=== PATIENT | male | born 1975 | race Two or more races ===

== ENCOUNTER 2019-05-12 18:46 | Emergency (ER) | payer SELFPAY ==
[~2019-05-12] VITALS: Ht 177.8 cm; Wt 72.6 kg
[2019-05-13 01:21] VITALS: BP 137/82
== END 2019-05-13 01:38 | disposition still patient (30) ==
LOC: EDBD 18:46 → ER 18:49
DX: S09.90XA Unspecified injury of head, initial encounter (principal); R51 Headache; Y04.0XXA Assault by unarmed brawl or fight, initial encounter; Y93.89 Activity, other specified; Y92.89 Other specified places as the place of occurrence of the external cause; Y99.8 Other external cause status
CPT/HCPCS: 70450; 72125

== ENCOUNTER 2021-06-09 11:20 | Inpatient (IN) | payer MEDICAID ==
[~2021-06-09] VITALS: Ht 182.9 cm; Wt 73.0 kg
[2021-06-09] MEDS ORDERED: ASCORBIC ACID 500 MG TAB PO ONE (11:45)
[2021-06-09] MEDS ORDERED: methylPREDNISolone SOD SUCC 125 MG/2 ML VL IV ONE (11:45)
[2021-06-09] MEDS ORDERED: CHOLECALCIFEROL (VITD3) 2,000 UNIT CAP/TAB PO ONE (11:45)
[2021-06-09] MEDS ORDERED: ZINC SULFATE 220mg CAP or TAB PO ONE (11:45)
[2021-06-09] MEDS ORDERED: AZITHROMYCIN 500MG/ 250ML 250 ML IV ONE (11:45)
[2021-06-09] MEDS ORDERED: REMDESIVIR PER PHARMACY 0 ML IV SCH ×2 (12:00→18:15)
[2021-06-09 13:14] LABS: Basophils # (auto) 0 10 ^3/uL (0-0.2); Basophils % (auto) 0.1 % (0.0-2.0); Eosinophils # (auto) 0 10 ^3/uL (0-0.8); Hematocrit 44.3 % (41.0-53.0); Hemoglobin 15.5 g/dL (13.5-17.5); Lymphocytes # (auto) 0.5 10 ^3/uL (0.4-5.4); Lymphocytes % (auto) 7.2 % (10.0-50.0); Mean Corpuscular Hemoglobin 32.8 pg (28.0-32.0); Mean Corpuscular Volume 93.7 fL (80.0-100.0); Monocytes # (auto) 0.4 10 ^3/uL (0-1.3); Monocytes % (auto) 5.4 % (0.0-12.0); Neutrophils # (auto) 6.2 10 ^3/uL (1.6-8.6); Neutrophils % (auto) 87.3 % (37.0-80.0); Nucleated Red Blood Cells % 0.2 %; Red Blood Cells 4.72 10^6/uL (4.5-5.90); Red Cell Distribution Width 12.3 % (11.8-14.3); White Blood Cell 7.1 10^3/uL (4.4-10.8)
[2021-06-09 13:31] LABS: Albumin 2.6 g/dL (3.4-5.0); Calcium 8.2 mg/dL (8.5-10.1); Potassium 4.1 mmol/L (3.5-5.1)
[2021-06-09 13:40] LABS: BUN/Creatinine Ratio 17.9; Bilirubin, Total 0.6 mg/dL (0.2-1.0); CRP High Sensitivity 11.3 mg/dL (< 0.3); Total Protein 7.8 g/dL (6.4-8.2)
[2021-06-09] MEDS ORDERED: REMDESIVIR 200 MG in NS 210ml LOADING DOSE ADULT IV ONE (16:00)
[2021-06-09] MEDS ORDERED: MORPHINE SULFATE INJECTION 2 MG/ML SYRG IV PRN (18:15)
[2021-06-09] MEDS ORDERED: MORPHINE SULFATE 4 MG/ML SYR/VIAL IV PRN (18:15)
[2021-06-09] MEDS ORDERED: LABETALOL HCL 5 MG/ML 4ML SYRINGE IV PRN (18:15)
[2021-06-09] MEDS ORDERED: NITROGLYCERIN 0.4 MG SL TAB SL PRN (18:15)
[2021-06-09] MEDS ORDERED: SODIUM CHLORIDE 0.9% 2,000 ML IV ONE (18:15)
[2021-06-09] MEDS ORDERED: ONDANSETRON HCL 4 MG/2 ML VIAL IV PRN (18:15)
[2021-06-09] MEDS: ALBUTEROL SULF HFA 90MCG INH 200DOSE IN PRN (19:34)
[2021-06-09] MEDS: BUDESONIDE (INHALATION) 180 MCG IH IN SCH (19:34)
[2021-06-09 21:05] VITALS: BP 114/68
[2021-06-09 21:11] VITALS: BP 114/68
[2021-06-09] MEDS: ENOXAPARIN SOD 40 MG/0.4 ML SYRINGE SC SCH (22:19)
[2021-06-10] VITALS (8 sets, daily range): BP systolic 121–138; BP diastolic 70–80
[2021-06-10] MEDS ORDERED: NORPTMEDS CO (00:55)
[2021-06-10] MEDS: ALBUTEROL SULF HFA 90MCG INH 200DOSE IN PRN ×2 (05:56→23:13)
[2021-06-10] MEDS: BUDESONIDE (INHALATION) 180 MCG IH IN SCH ×2 (05:57→21:53)
[2021-06-10 06:56] LABS: Basophils # (auto) 0 10 ^3/uL (0-0.2); Eosinophils # (auto) 0 10 ^3/uL (0-0.8); Hematocrit 41.2 % (41.0-53.0); Hemoglobin 14.6 g/dL (13.5-17.5); Lymphocytes # (auto) 0.5 10 ^3/uL (0.4-5.4); Lymphocytes % (auto) 7.3 % (10.0-50.0); Mean Corpuscular Hemoglobin 33.2 pg (28.0-32.0); Mean Corpuscular Hgb Conc. 35.5 g/dL (32.0-36.0); Mean Corpuscular Volume 93.6 fL (80.0-100.0); Monocytes # (auto) 0.4 10 ^3/uL (0-1.3); Monocytes % (auto) 6.6 % (0.0-12.0); Neutrophils # (auto) 5.8 10 ^3/uL (1.6-8.6); Neutrophils % (auto) 86.1 % (37.0-80.0); Nucleated Red Blood Cells % 0.4 %; Red Cell Distribution Width 12.7 % (11.8-14.3); White Blood Cell 6.7 10^3/uL (4.4-10.8)
[2021-06-10 07:00] LABS: Urine Bacteria NONE SEEN /hpf (None Seen); Urine Blood Negative /uL (Negative); Urine Specific Gravity 1.027 (1.001-1.035); Urine WBC 1 /hpf (0 - 3)
[2021-06-10 07:16] LABS: Potassium 4.3 mmol/L (3.5-5.1)
[2021-06-10 07:24] LABS: Albumin 2.3 g/dL (3.4-5.0); Bilirubin, Total 0.6 mg/dL (0.2-1.0); Calcium 7.7 mg/dL (8.5-10.1); Total Protein 6.3 g/dL (6.4-8.2)
[2021-06-10 07:33] LABS: Thyroid Stimulating Hormone 0.81 uIU/mL (0.358-3.74)
[2021-06-10] MEDS: cefTRIAXone 1GM/50ML D5W 50 ML IV SCH (08:55)
[2021-06-10] MEDS: ZINC SULFATE 220mg CAP or TAB PO SCH (08:56)
[2021-06-10] MEDS: PANTOPRAZOLE 40 MG TAB PO SCH (08:56)
[2021-06-10] MEDS: ASCORBIC ACID 1,000 MG TAB PO SCH (08:57)
[2021-06-10] MEDS: ENOXAPARIN SOD 40 MG/0.4 ML SYRINGE SC SCH ×2 (08:57→22:31)
[2021-06-10] MEDS ORDERED: CHOLECALCIFEROL (VITD3) 2,000 UNIT CAP/TAB PO SCH (10:00)
[2021-06-10] MEDS ORDERED: DexAMETHasone SOD PHOS 10MG/1ML VIAL INJ IV SCH (10:00)
[2021-06-10] MEDS: AZITHROMYCIN 500MG/ 250ML 250 ML IV SCH (10:04)
[2021-06-10] MEDS ORDERED: POTASSIUM CHL 20 Meq TABLET PO ONE (10:30)
[2021-06-10] MEDS ORDERED: FUROSEMIDE 20 MG/2 ML VIAL IV ONE (10:30)
[2021-06-10] MEDS: ERGOCALCIFEROL 50,000 UNIT(1.25MG) CAP PO SCH (12:53)
[2021-06-10] MEDS: REMDESIVIR 100mg 100 MG in SODIUM CHL 0.9% 230 ML IV SCH (12:56)
[2021-06-10] MEDS: DexAMETHasone SOD PHOS 4 MG/1ML SDV INJ IV SCH (22:30)
[2021-06-11 05:00] VITALS: BP_SYST 113; BP_SYST 119; BP_DIAS 70; BP_DIAS 76
[2021-06-11] MEDS: BUDESONIDE (INHALATION) 180 MCG IH IN SCH ×2 (06:12→19:00)
[2021-06-11] MEDS: ALBUTEROL SULF HFA 90MCG INH 200DOSE IN PRN ×2 (06:12→19:51)
[2021-06-11 06:23] LABS: Potassium 4.5 mmol/L (3.5-5.1)
[2021-06-11 06:37] LABS: Albumin 2.6 g/dL (3.4-5.0); Bilirubin, Total 0.8 mg/dL (0.2-1.0); Calcium 7.9 mg/dL (8.5-10.1); Total Protein 6.4 g/dL (6.4-8.2)
[2021-06-11 07:35] VITALS: BP 131/72
[2021-06-11 09:00] VITALS: BP 131/72
[2021-06-11] MEDS: cefTRIAXone 1GM/50ML D5W 50 ML IV SCH (09:46)
[2021-06-11] MEDS: ASCORBIC ACID 1,000 MG TAB PO SCH (09:46)
[2021-06-11] MEDS: PANTOPRAZOLE 40 MG TAB PO SCH (09:46)
[2021-06-11] MEDS: FUROSEMIDE 20 MG/2 ML VIAL IV SCH (09:47)
[2021-06-11] MEDS: ENOXAPARIN SOD 40 MG/0.4 ML SYRINGE SC SCH ×2 (09:47→21:38)
[2021-06-11] MEDS: POTASSIUM CHL 20 Meq TABLET PO SCH (09:47)
[2021-06-11] MEDS: DexAMETHasone SOD PHOS 4 MG/1ML SDV INJ IV SCH ×2 (09:48→21:38)
[2021-06-11] MEDS: ZINC SULFATE 220mg CAP or TAB PO SCH (09:48)
[2021-06-11] MEDS: AZITHROMYCIN 500MG/ 250ML 250 ML IV SCH (11:07)
[2021-06-11] MEDS: DOCUSATE CALCIUM 240 MG CAP PO PRN ×2 (12:12→21:36)
[2021-06-11 12:32] VITALS: BP 118/67
[2021-06-11] MEDS: REMDESIVIR 100mg 100 MG in SODIUM CHL 0.9% 230 ML IV SCH (15:24)
[2021-06-11 16:32] VITALS: BP 131/75
[2021-06-11 22:14] VITALS: BP 126/82
[2021-06-12 05:32] VITALS: BP 123/84
[2021-06-12] MEDS: ALBUTEROL SULF HFA 90MCG INH 200DOSE IN PRN ×2 (05:59→18:19)
[2021-06-12] MEDS: BUDESONIDE (INHALATION) 180 MCG IH IN SCH ×2 (05:59→18:12)
[2021-06-12 06:42] LABS: Albumin 2.7 g/dL (3.4-5.0); Calcium 8.1 mg/dL (8.5-10.1); Potassium 4.9 mmol/L (3.5-5.1)
[2021-06-12 06:47] LABS: Total Protein 6.5 g/dL (6.4-8.2)
[2021-06-12 07:30] VITALS: BP 126/79
[2021-06-12 09:15] VITALS: BP 126/79
[2021-06-12] MEDS: cefTRIAXone 1GM/50ML D5W 50 ML IV SCH (11:07)
[2021-06-12] MEDS: DexAMETHasone SOD PHOS 4 MG/1ML SDV INJ IV SCH ×2 (11:07→20:41)
[2021-06-12] MEDS: ASCORBIC ACID 1,000 MG TAB PO SCH (11:08)
[2021-06-12] MEDS: POTASSIUM CHL 20 Meq TABLET PO SCH (11:08)
[2021-06-12] MEDS: PANTOPRAZOLE 40 MG TAB PO SCH (11:08)
[2021-06-12] MEDS: ZINC SULFATE 220mg CAP or TAB PO SCH (11:09)
[2021-06-12] MEDS: ENOXAPARIN SOD 40 MG/0.4 ML SYRINGE SC SCH ×2 (11:09→20:42)
[2021-06-12] MEDS: FUROSEMIDE 20 MG/2 ML VIAL IV SCH (11:20)
[2021-06-12] MEDS: AZITHROMYCIN 500MG/ 250ML 250 ML IV SCH (12:13)
[2021-06-12 13:00] VITALS: BP 116/71
[2021-06-12] MEDS: REMDESIVIR 100mg 100 MG in SODIUM CHL 0.9% 230 ML IV SCH (15:52)
[2021-06-12 17:00] VITALS: BP 124/79
[2021-06-12 22:00] VITALS: BP 110/64
[2021-06-13] VITALS (12 sets, daily range): BP systolic 100–126; BP diastolic 61–82
[2021-06-13] MEDS: ACETAMINOPHEN 500 MG TAB PO PRN ×2 (05:21→23:21)
[2021-06-13] MEDS: ALBUTEROL SULF HFA 90MCG INH 200DOSE IN PRN ×2 (05:47→18:08)
[2021-06-13] MEDS: BUDESONIDE (INHALATION) 180 MCG IH IN SCH ×2 (05:47→21:40)
[2021-06-13 06:50] LABS: Potassium 4.8 mmol/L (3.5-5.1)
[2021-06-13 06:55] LABS: Albumin 2.7 g/dL (3.4-5.0); Calcium 8.3 mg/dL (8.5-10.1)
[2021-06-13 06:58] LABS: Total Protein 6.5 g/dL (6.4-8.2)
[2021-06-13] MEDS: cefTRIAXone 1GM/50ML D5W 50 ML IV SCH (09:30)
[2021-06-13] MEDS: DexAMETHasone SOD PHOS 4 MG/1ML SDV INJ IV SCH ×2 (09:31→21:02)
[2021-06-13] MEDS: FUROSEMIDE 20 MG/2 ML VIAL IV SCH (09:32)
[2021-06-13] MEDS: POTASSIUM CHL 20 Meq TABLET PO SCH (09:33)
[2021-06-13] MEDS: PANTOPRAZOLE 40 MG TAB PO SCH (09:34)
[2021-06-13] MEDS: ASCORBIC ACID 1,000 MG TAB PO SCH (09:35)
[2021-06-13] MEDS: ENOXAPARIN SOD 40 MG/0.4 ML SYRINGE SC SCH ×2 (09:35→21:02)
[2021-06-13] MEDS: ZINC SULFATE 220mg CAP or TAB PO SCH (09:36)
[2021-06-13] MEDS: DOCUSATE CALCIUM 240 MG CAP PO PRN (09:49)
[2021-06-13] MEDS: AZITHROMYCIN 500MG/ 250ML 250 ML IV SCH (11:05)
[2021-06-13] MEDS: REMDESIVIR 100mg 100 MG in SODIUM CHL 0.9% 230 ML IV SCH (14:39)
[2021-06-13] MEDS ORDERED: TEMAZEPAM 15 MG CAP PO ONE (23:15)
[2021-06-14] VITALS (10 sets, daily range): BP systolic 105–133; BP diastolic 65–85
[2021-06-14 06:42] LABS: Basophils # (auto) 0 10 ^3/uL (0-0.2); Eosinophils # (auto) 0 10 ^3/uL (0-0.8); Eosinophils % (auto) 0.2 % (0.0-7.0); Monocytes # (auto) 0.4 10 ^3/uL (0-1.3); Red Cell Distribution Width 12.5 % (11.8-14.3)
[2021-06-14 06:47] LABS: Basophils % (auto) 0.2 % (0.0-2.0); Hemoglobin 15.9 g/dL (13.5-17.5); Lymphocytes # (auto) 0.5 10 ^3/uL (0.4-5.4); Lymphocytes % (auto) 4.1 % (10.0-50.0); Mean Corpuscular Hemoglobin 32.4 pg (28.0-32.0); Mean Corpuscular Hgb Conc. 34.6 g/dL (32.0-36.0); Mean Corpuscular Volume 93.5 fL (80.0-100.0); Neutrophils # (auto) 11.3 10 ^3/uL (1.6-8.6); Neutrophils % (auto) 92.5 % (37.0-80.0); Nucleated Red Blood Cells % 0.1 %; Red Blood Cells 4.92 10^6/uL (4.5-5.90); White Blood Cell 12.2 10^3/uL (4.4-10.8)
[2021-06-14] MEDS: cefTRIAXone 1GM/50ML D5W 50 ML IV SCH (07:08)
[2021-06-14 08:02] LABS: Albumin 2.8 g/dL (3.4-5.0); BUN/Creatinine Ratio 37.1; Calcium 8.4 mg/dL (8.5-10.1); Total Protein 6.6 g/dL (6.4-8.2)
[2021-06-14] MEDS: FUROSEMIDE 20 MG/2 ML VIAL IV SCH (08:37)
[2021-06-14] MEDS: AZITHROMYCIN 500MG/ 250ML 250 ML IV SCH (08:37)
[2021-06-14] MEDS: DexAMETHasone SOD PHOS 4 MG/1ML SDV INJ IV SCH ×2 (08:37→21:57)
[2021-06-14] MEDS: ZINC SULFATE 220mg CAP or TAB PO SCH (08:38)
[2021-06-14] MEDS: POTASSIUM CHL 20 Meq TABLET PO SCH (08:38)
[2021-06-14] MEDS: BUDESONIDE (INHALATION) 180 MCG IH IN SCH ×2 (08:39→19:00)
[2021-06-14] MEDS: PANTOPRAZOLE 40 MG TAB PO SCH (08:39)
[2021-06-14] MEDS: ALBUTEROL SULF HFA 90MCG INH 200DOSE IN PRN ×2 (08:39→19:00)
[2021-06-14] MEDS: ASCORBIC ACID 1,000 MG TAB PO SCH (08:39)
[2021-06-14] MEDS: ENOXAPARIN SOD 40 MG/0.4 ML SYRINGE SC SCH ×2 (08:40→21:57)
[2021-06-14] MEDS ORDERED: SALINE 0.65 % NASAL SPRAY 45ML BOTTLE EACHNOSTRI ONE (10:45)
[2021-06-14] MEDS: SALINE 0.65 % NASAL SPRAY 45ML BOTTLE EACHNOSTRI SCH ×3 (11:30→21:57)
[2021-06-14] MEDS: Ensure HIGH Protein Chocolate 8oz Bottle PO SCH ×2 (12:00→18:56)
[2021-06-14] MEDS: DOCUSATE CALCIUM 240 MG CAP PO PRN (22:19)
[2021-06-14] MEDS: LORazepam 2MG/ML-1ML VIAL IV PRN (22:19)
[2021-06-15] VITALS (8 sets, daily range): BP systolic 96–133; BP diastolic 61–85
[2021-06-15] MEDS: SALINE 0.65 % NASAL SPRAY 45ML BOTTLE EACHNOSTRI SCH ×4 (06:00→21:35)
[2021-06-15] MEDS: Ensure HIGH Protein Chocolate 8oz Bottle PO SCH ×3 (08:00→18:25)
[2021-06-15] MEDS: DexAMETHasone SOD PHOS 4 MG/1ML SDV INJ IV SCH ×2 (10:01→21:35)
[2021-06-15] MEDS: cefTRIAXone 1GM/50ML D5W 50 ML IV SCH (10:01)
[2021-06-15] MEDS: PANTOPRAZOLE 40 MG TAB PO SCH (10:04)
[2021-06-15] MEDS: FUROSEMIDE 20 MG/2 ML VIAL IV SCH (10:04)
[2021-06-15] MEDS: POTASSIUM CHL 20 Meq TABLET PO SCH (10:04)
[2021-06-15] MEDS: ZINC SULFATE 220mg CAP or TAB PO SCH (10:04)
[2021-06-15] MEDS: ASCORBIC ACID 1,000 MG TAB PO SCH (10:05)
[2021-06-15] MEDS: ENOXAPARIN SOD 40 MG/0.4 ML SYRINGE SC SCH ×2 (10:05→21:36)
[2021-06-15] MEDS ORDERED: TOCILIZUMAB 400 MG in SODIUM CHL 0.9% 80 ML IV ONE (11:30)
[2021-06-15] MEDS ORDERED: SODIUM CHL 0.9% IV ONE (11:30)
[2021-06-15] MEDS ORDERED: TOCILIZUMAB IV ONE (11:30)
[2021-06-15] MEDS: ALBUTEROL SULF HFA 90MCG INH 200DOSE IN PRN ×2 (15:25→21:00)
[2021-06-15] MEDS: BUDESONIDE (INHALATION) 180 MCG IH IN SCH ×2 (15:25→19:36)
[2021-06-15] MEDS: DOCUSATE CALCIUM 240 MG CAP PO PRN (21:37)
[2021-06-16] VITALS (7 sets, daily range): BP systolic 116–134; BP diastolic 74–89
[2021-06-16] MEDS: LORazepam 2MG/ML-1ML VIAL IV PRN (01:16)
[2021-06-16] MEDS: SALINE 0.65 % NASAL SPRAY 45ML BOTTLE EACHNOSTRI SCH ×4 (06:40→22:07)
[2021-06-16 07:09] LABS: White Blood Cell 12.1 10^3/uL (4.4-10.8)
[2021-06-16 07:11] LABS: Hematocrit 45.3 % (41.0-53.0); Mean Corpuscular Hemoglobin 33.2 pg (28.0-32.0); Mean Corpuscular Hgb Conc. 35.3 g/dL (32.0-36.0); Mean Corpuscular Volume 94.1 fL (80.0-100.0); Red Blood Cells 4.82 10^6/uL (4.5-5.90); Red Cell Distribution Width 12.8 % (11.8-14.3)
[2021-06-16 07:19] LABS: BUN/Creatinine Ratio 44.2; Calcium 8.5 mg/dL (8.5-10.1); Potassium 5.2 mmol/L (3.5-5.1)
[2021-06-16 07:27] LABS: Band Neutrophils % (manual) 0; Basophils % (manual) 0 (0.0-2.0); Blast Cells 0; Eosinophils % (manual) 0 (0-7); Metamyelocytes % 0; Myelocytes % 0; Promyelocytes % 0; Reactive Lymphocytes 0
[2021-06-16] MEDS: ALBUTEROL SULF HFA 90MCG INH 200DOSE IN PRN ×2 (07:34→19:10)
[2021-06-16] MEDS: BUDESONIDE (INHALATION) 180 MCG IH IN SCH ×2 (07:34→18:46)
[2021-06-16] MEDS: Ensure HIGH Protein Chocolate 8oz Bottle PO SCH ×3 (07:37→17:47)
[2021-06-16 08:44] LABS: Lymphocytes % (manual) 2 (10.0-50.0); Monocytes % (manual) 2 (0-12)
[2021-06-16] MEDS: cefTRIAXone 1GM/50ML D5W 50 ML IV SCH (08:53)
[2021-06-16] MEDS: PANTOPRAZOLE 40 MG TAB PO SCH (09:11)
[2021-06-16] MEDS: DexAMETHasone SOD PHOS 4 MG/1ML SDV INJ IV SCH ×2 (09:11→22:06)
[2021-06-16] MEDS: ZINC SULFATE 220mg CAP or TAB PO SCH (09:11)
[2021-06-16] MEDS: ASCORBIC ACID 1,000 MG TAB PO SCH (09:12)
[2021-06-16] MEDS: POTASSIUM CHL 20 Meq TABLET PO SCH (09:12)
[2021-06-16] MEDS: ENOXAPARIN SOD 40 MG/0.4 ML SYRINGE SC SCH ×2 (09:12→22:07)
[2021-06-16] MEDS: FUROSEMIDE 20 MG/2 ML VIAL IV SCH (09:12)
[2021-06-16] MEDS ORDERED: SODIUM ZIRCONIUM CYCL 10 GM PAK PO ONE (12:15)
[2021-06-16] MEDS ORDERED: TOCILIZUMAB 400 MG in SODIUM CHL 0.9% 80 ML IV SCH (22:00)
[2021-06-17 05:00] VITALS: BP 101/61
[2021-06-17 05:56] LABS: Basophils # (auto) 0 10 ^3/uL (0-0.2); Eosinophils # (auto) 0.1 10 ^3/uL (0-0.8); Mean Corpuscular Volume 93.2 fL (80.0-100.0); Monocytes # (auto) 0.3 10 ^3/uL (0-1.3); Monocytes % (auto) 2.5 % (0.0-12.0)
[2021-06-17 05:57] LABS: Basophils % (auto) 0.4 % (0.0-2.0); Eosinophils % (auto) 0.7 % (0.0-7.0); Hematocrit 46.3 % (41.0-53.0); Hemoglobin 15.8 g/dL (13.5-17.5); Lymphocytes # (auto) 0.3 10 ^3/uL (0.4-5.4); Mean Corpuscular Hemoglobin 31.7 pg (28.0-32.0); Neutrophils # (auto) 11.7 10 ^3/uL (1.6-8.6); Neutrophils % (auto) 94.4 % (37.0-80.0); Nucleated Red Blood Cells % 0.1 %; Red Blood Cells 4.97 10^6/uL (4.5-5.90); Red Cell Distribution Width 12.7 % (11.8-14.3); White Blood Cell 12.4 10^3/uL (4.4-10.8)
[2021-06-17] MEDS: SALINE 0.65 % NASAL SPRAY 45ML BOTTLE EACHNOSTRI SCH ×4 (06:08→22:07)
[2021-06-17 06:23] LABS: Albumin 2.5 g/dL (3.4-5.0); Calcium 8.5 mg/dL (8.5-10.1); Potassium 5.1 mmol/L (3.5-5.1)
[2021-06-17 06:28] LABS: BUN/Creatinine Ratio 43.4; Bilirubin, Total 0.7 mg/dL (0.2-1.0); Total Protein 6.2 g/dL (6.4-8.2)
[2021-06-17] MEDS: Ensure HIGH Protein Chocolate 8oz Bottle PO SCH ×3 (08:51→17:46)
[2021-06-17 09:09] VITALS: BP 108/69
[2021-06-17] MEDS: cefTRIAXone 1GM/50ML D5W 50 ML IV SCH (09:22)
[2021-06-17] MEDS: ASCORBIC ACID 1,000 MG TAB PO SCH (09:23)
[2021-06-17] MEDS: FUROSEMIDE 20 MG/2 ML VIAL IV SCH (09:23)
[2021-06-17] MEDS: ENOXAPARIN SOD 40 MG/0.4 ML SYRINGE SC SCH ×2 (09:23→22:07)
[2021-06-17] MEDS: DexAMETHasone SOD PHOS 4 MG/1ML SDV INJ IV SCH ×2 (09:24→22:07)
[2021-06-17] MEDS: ZINC SULFATE 220mg CAP or TAB PO SCH (09:24)
[2021-06-17] MEDS: PANTOPRAZOLE 40 MG TAB PO SCH (09:24)
[2021-06-17] MEDS: ALBUTEROL SULF HFA 90MCG INH 200DOSE IN PRN ×2 (10:59→20:06)
[2021-06-17] MEDS: BUDESONIDE (INHALATION) 180 MCG IH IN SCH ×2 (11:00→18:50)
[2021-06-17] MEDS ORDERED: MORPHINE SULFATE 4 MG/ML SYR/VIAL IV PRN (12:00)
[2021-06-17] MEDS: ERGOCALCIFEROL 50,000 UNIT(1.25MG) CAP PO SCH (12:32)
[2021-06-17 14:10] VITALS: BP 122/87
[2021-06-17 17:24] VITALS: BP 107/67
[2021-06-17 22:00] VITALS: BP 120/84
[2021-06-18 05:00] VITALS: BP 111/64
[2021-06-18] MEDS: SALINE 0.65 % NASAL SPRAY 45ML BOTTLE EACHNOSTRI SCH ×4 (06:00→22:27)
[2021-06-18 07:12] LABS: Calcium 8.5 mg/dL (8.5-10.1)
[2021-06-18 08:00] VITALS: BP 130/86
[2021-06-18] MEDS: BUDESONIDE (INHALATION) 180 MCG IH IN SCH ×2 (09:35→22:00)
[2021-06-18] MEDS: ASCORBIC ACID 1,000 MG TAB PO SCH (10:00)
[2021-06-18 10:05] VITALS: BP 133/110
[2021-06-18] MEDS: cefTRIAXone 1GM/50ML D5W 50 ML IV SCH (10:41)
[2021-06-18] MEDS: DexAMETHasone SOD PHOS 4 MG/1ML SDV INJ IV SCH ×2 (10:41→22:27)
[2021-06-18] MEDS: FUROSEMIDE 20 MG/2 ML VIAL IV SCH (10:42)
[2021-06-18] MEDS: ZINC SULFATE 220mg CAP or TAB PO SCH (10:42)
[2021-06-18] MEDS: Ensure HIGH Protein Chocolate 8oz Bottle PO SCH ×3 (10:43→19:54)
[2021-06-18] MEDS: ENOXAPARIN SOD 40 MG/0.4 ML SYRINGE SC SCH ×2 (10:43→22:27)
[2021-06-18] MEDS: PANTOPRAZOLE 40 MG TAB PO SCH (10:43)
[2021-06-18 13:32] VITALS: BP 133/110
[2021-06-18 16:56] VITALS: BP 107/70
[2021-06-18 22:00] VITALS: BP 127/88
[2021-06-19 05:00] VITALS: BP 105/74
[2021-06-19] MEDS: SALINE 0.65 % NASAL SPRAY 45ML BOTTLE EACHNOSTRI SCH ×4 (06:21→21:24)
[2021-06-19] MEDS: Ensure HIGH Protein Chocolate 8oz Bottle PO SCH ×3 (08:00→18:00)
[2021-06-19 09:37] VITALS: BP 111/73
[2021-06-19] MEDS: DexAMETHasone SOD PHOS 4 MG/1ML SDV INJ IV SCH ×2 (10:02→21:25)
[2021-06-19] MEDS: ENOXAPARIN SOD 40 MG/0.4 ML SYRINGE SC SCH ×2 (10:02→21:25)
[2021-06-19] MEDS: FUROSEMIDE 20 MG/2 ML VIAL IV SCH (10:06)
[2021-06-19] MEDS: BUDESONIDE (INHALATION) 180 MCG IH IN SCH ×2 (10:17→22:24)
[2021-06-19] MEDS: PANTOPRAZOLE 40 MG TAB PO SCH (10:21)
[2021-06-19] MEDS: cefTRIAXone 1GM/50ML D5W 50 ML IV SCH (11:24)
[2021-06-19] MEDS: LORazepam 2MG/ML-1ML VIAL IV PRN ×2 (11:24→22:00)
[2021-06-19 12:46] VITALS: BP 100/67
[2021-06-19 16:35] VITALS: BP 101/68
[2021-06-19 22:00] VITALS: BP 122/74
[2021-06-19] MEDS: DOCUSATE CALCIUM 240 MG CAP PO PRN (22:01)
[2021-06-20 05:00] VITALS: BP 121/77
[2021-06-20] MEDS: SALINE 0.65 % NASAL SPRAY 45ML BOTTLE EACHNOSTRI SCH ×4 (06:00→21:26)
[2021-06-20] MEDS: ALBUTEROL SULF HFA 90MCG INH 200DOSE IN PRN ×2 (06:17→18:50)
[2021-06-20] MEDS: BUDESONIDE (INHALATION) 180 MCG IH IN SCH ×2 (06:17→18:49)
[2021-06-20 09:00] VITALS: BP 107/71
[2021-06-20] MEDS: Ensure HIGH Protein Chocolate 8oz Bottle PO SCH ×3 (10:21→18:00)
[2021-06-20] MEDS: cefTRIAXone 1GM/50ML D5W 50 ML IV SCH (10:22)
[2021-06-20] MEDS: PANTOPRAZOLE 40 MG TAB PO SCH (10:22)
[2021-06-20] MEDS: DexAMETHasone SOD PHOS 4 MG/1ML SDV INJ IV SCH ×2 (10:22→21:26)
[2021-06-20] MEDS: ENOXAPARIN SOD 40 MG/0.4 ML SYRINGE SC SCH ×2 (10:22→21:27)
[2021-06-20] MEDS: FUROSEMIDE 20 MG/2 ML VIAL IV SCH ×2 (10:24→21:28)
[2021-06-20 13:00] VITALS: BP 107/71
[2021-06-20 17:00] VITALS: BP 129/83
[2021-06-20 21:52] VITALS: BP 107/72
[2021-06-21] MEDS: SALINE 0.65 % NASAL SPRAY 45ML BOTTLE EACHNOSTRI SCH ×4 (04:56→22:26)
[2021-06-21 05:00] VITALS: BP 97/60
[2021-06-21] MEDS: ALBUTEROL SULF HFA 90MCG INH 200DOSE IN PRN ×2 (05:29→19:05)
[2021-06-21] MEDS: BUDESONIDE (INHALATION) 180 MCG IH IN SCH ×2 (05:29→18:06)
[2021-06-21 08:20] LABS: Eosinophils # (auto) 0 10 ^3/uL (0-0.8); Monocytes # (auto) 1.1 10 ^3/uL (0-1.3)
[2021-06-21 08:22] LABS: Basophils # (auto) 0 10 ^3/uL (0-0.2); Basophils % (auto) 0.2 % (0.0-2.0); Eosinophils % (auto) 0.2 % (0.0-7.0); Hematocrit 49.2 % (41.0-53.0); Hemoglobin 17.1 g/dL (13.5-17.5); Lymphocytes % (auto) 6.3 % (10.0-50.0); Mean Corpuscular Hemoglobin 32.3 pg (28.0-32.0); Mean Corpuscular Hgb Conc. 34.7 g/dL (32.0-36.0); Monocytes % (auto) 6.7 % (0.0-12.0); Neutrophils # (auto) 13.7 10 ^3/uL (1.6-8.6); Neutrophils % (auto) 86.6 % (37.0-80.0); Nucleated Red Blood Cells % 0.2 %; Red Blood Cells 5.29 10^6/uL (4.5-5.90); Red Cell Distribution Width 12.7 % (11.8-14.3); White Blood Cell 15.9 10^3/uL (4.4-10.8)
[2021-06-21 08:33] LABS: Potassium 4.4 mmol/L (3.5-5.1)
[2021-06-21 08:39] LABS: BUN/Creatinine Ratio 55.8; Calcium 8.7 mg/dL (8.5-10.1)
[2021-06-21 09:02] VITALS: BP 118/74
[2021-06-21] MEDS: DexAMETHasone SOD PHOS 4 MG/1ML SDV INJ IV SCH ×2 (10:44→22:26)
[2021-06-21] MEDS: cefTRIAXone 1GM/50ML D5W 50 ML IV SCH (10:44)
[2021-06-21] MEDS: Ensure HIGH Protein Chocolate 8oz Bottle PO SCH ×3 (10:44→17:56)
[2021-06-21] MEDS: PANTOPRAZOLE 40 MG TAB PO SCH (10:45)
[2021-06-21] MEDS: ENOXAPARIN SOD 40 MG/0.4 ML SYRINGE SC SCH ×2 (10:45→22:26)
[2021-06-21] MEDS: FUROSEMIDE 20 MG/2 ML VIAL IV SCH ×2 (10:46→22:25)
[2021-06-21] MEDS: LORazepam 2MG/ML-1ML VIAL IV PRN (12:44)
[2021-06-21] MEDS ORDERED: PIPERACILLIN-TAZOB 3.375GM 100 ML IV ONE (12:45)
[2021-06-21 12:55] VITALS: BP 110/63
[2021-06-21 17:00] VITALS: BP 107/72
[2021-06-21] MEDS: PIPERACILLIN-TAZOB 3.375GM 100 ML IV SCH ×2 (17:56→22:27)
[2021-06-21 22:00] VITALS: BP 121/70
[2021-06-22 05:00] VITALS: BP 126/71
[2021-06-22] MEDS: PIPERACILLIN-TAZOB 3.375GM 100 ML IV SCH ×3 (05:45→22:02)
[2021-06-22] MEDS: SALINE 0.65 % NASAL SPRAY 45ML BOTTLE EACHNOSTRI SCH ×4 (05:46→22:15)
[2021-06-22] MEDS: BUDESONIDE (INHALATION) 180 MCG IH IN SCH ×2 (05:50→22:00)
[2021-06-22] MEDS: ALBUTEROL SULF HFA 90MCG INH 200DOSE IN PRN ×2 (05:51→23:53)
[2021-06-22 06:47] LABS: Hemoglobin 17.8 g/dL (13.5-17.5); Mean Corpuscular Hemoglobin 32.1 pg (28.0-32.0)
[2021-06-22 06:49] LABS: Hematocrit 51.7 % (41.0-53.0); Mean Corpuscular Hgb Conc. 34.4 g/dL (32.0-36.0); Mean Corpuscular Volume 93.1 fL (80.0-100.0); Red Blood Cells 5.55 10^6/uL (4.5-5.90); Red Cell Distribution Width 12.7 % (11.8-14.3); White Blood Cell 18.5 10^3/uL (4.4-10.8)
[2021-06-22 07:29] LABS: Band Neutrophils % (manual) 0; Basophils % (manual) 0 (0.0-2.0); Blast Cells 0; Eosinophils % (manual) 0 (0-7); Metamyelocytes % 0; Myelocytes % 0; Promyelocytes % 0; Reactive Lymphocytes 0
[2021-06-22 08:04] LABS: Lymphocytes % (manual) 4 (10.0-50.0); Monocytes % (manual) 3 (0-12)
[2021-06-22] MEDS: Ensure HIGH Protein Chocolate 8oz Bottle PO SCH ×2 (08:27→12:03)
[2021-06-22] MEDS: DexAMETHasone SOD PHOS 4 MG/1ML SDV INJ IV SCH ×2 (08:27→22:15)
[2021-06-22] MEDS: PANTOPRAZOLE 40 MG TAB PO SCH (08:28)
[2021-06-22] MEDS: ENOXAPARIN SOD 40 MG/0.4 ML SYRINGE SC SCH (08:28)
[2021-06-22] MEDS: FUROSEMIDE 20 MG/2 ML VIAL IV SCH (08:34)
[2021-06-22] MEDS: DOCUSATE CALCIUM 240 MG CAP PO PRN (08:35)
[2021-06-22 09:00] VITALS: BP 121/77
[2021-06-22] MEDS: LORazepam 2MG/ML-1ML VIAL IV PRN (11:05)
[2021-06-22 12:30] VITALS: BP 110/72
[2021-06-22] MEDS: Glucerna Carbsteady SHAKE Vanilla 8oz PO SCH (17:54)
[2021-06-22 18:55] VITALS: BP 103/68
[2021-06-22 22:01] VITALS: BP 124/73
[2021-06-22] MEDS: ENOXAPARIN SOD 80 MG/0.8ML SYRINGE SC SCH (22:15)
[2021-06-23 05:00] VITALS: BP 105/55
[2021-06-23] MEDS: SALINE 0.65 % NASAL SPRAY 45ML BOTTLE EACHNOSTRI SCH ×7 (05:49→22:00)
[2021-06-23] MEDS: PIPERACILLIN-TAZOB 3.375GM 100 ML IV SCH ×3 (05:49→21:34)
[2021-06-23] MEDS: ALBUTEROL SULF HFA 90MCG INH 200DOSE IN PRN ×2 (07:26→19:08)
[2021-06-23] MEDS: BUDESONIDE (INHALATION) 180 MCG IH IN SCH ×2 (07:26→19:08)
[2021-06-23 07:57] LABS: Hematocrit 49.4 % (41.0-53.0); Hemoglobin 16.6 g/dL (13.5-17.5); Mean Corpuscular Hemoglobin 31.3 pg (28.0-32.0); Mean Corpuscular Hgb Conc. 33.6 g/dL (32.0-36.0); Mean Corpuscular Volume 93.1 fL (80.0-100.0); Red Blood Cells 5.31 10^6/uL (4.5-5.90); Red Cell Distribution Width 12.5 % (11.8-14.3)
[2021-06-23 08:09] LABS: Calcium 8.6 mg/dL (8.5-10.1); Potassium 4.2 mmol/L (3.5-5.1)
[2021-06-23 08:11] LABS: BUN/Creatinine Ratio 50.9
[2021-06-23 08:14] LABS: Band Neutrophils % (manual) 0; Basophils % (manual) 0 (0.0-2.0); Blast Cells 0; Eosinophils % (manual) 0 (0-7); Metamyelocytes % 0; Myelocytes % 0; Promyelocytes % 0; Reactive Lymphocytes 0
[2021-06-23 08:29] LABS: Lymphocytes % (manual) 3 (10.0-50.0); Monocytes % (manual) 6 (0-12)
[2021-06-23 09:04] VITALS: BP 125/70
[2021-06-23] MEDS: Glucerna Carbsteady SHAKE Vanilla 8oz PO SCH ×3 (09:49→18:12)
[2021-06-23] MEDS: DexAMETHasone SOD PHOS 4 MG/1ML SDV INJ IV SCH ×2 (09:49→21:34)
[2021-06-23] MEDS: ENOXAPARIN SOD 80 MG/0.8ML SYRINGE SC SCH ×2 (09:50→21:34)
[2021-06-23] MEDS: FAMOTIDINE (10MG/ML) 2ML VL IV SCH (10:00)
[2021-06-23 13:00] VITALS: BP 123/75
[2021-06-23] MEDS ORDERED: POTASSIUM CHL 20 Meq TABLET PO ONE ×2 (13:00→13:45)
[2021-06-23] MEDS ORDERED: FUROSEMIDE 20 MG/2 ML VIAL IV ONE ×2 (13:00→13:45)
[2021-06-23] MEDS ORDERED: SALINE 0.65 % NASAL SPRAY 45ML BOTTLE EACHNOSTRI ONE (13:00)
[2021-06-23] MEDS: LORazepam 2MG/ML-1ML VIAL IV PRN (15:42)
[2021-06-23 17:00] VITALS: BP 116/72
[2021-06-23 22:09] VITALS: BP 119/67
[2021-06-24 03:31] VITALS: BP 102/72
[2021-06-24] MEDS: PIPERACILLIN-TAZOB 3.375GM 100 ML IV SCH ×3 (05:52→21:28)
[2021-06-24] MEDS: SALINE 0.65 % NASAL SPRAY 45ML BOTTLE EACHNOSTRI SCH ×6 (05:53→21:28)
[2021-06-24] MEDS: BUDESONIDE (INHALATION) 180 MCG IH IN SCH ×2 (06:16→18:55)
[2021-06-24] MEDS: ALBUTEROL SULF HFA 90MCG INH 200DOSE IN PRN ×2 (06:17→18:55)
[2021-06-24 07:59] LABS: Basophils # (auto) 0 10 ^3/uL (0-0.2); Basophils % (auto) 0.2 % (0.0-2.0); Eosinophils # (auto) 0 10 ^3/uL (0-0.8); Eosinophils % (auto) 0.3 % (0.0-7.0); Hematocrit 47.2 % (41.0-53.0); Lymphocytes # (auto) 1.2 10 ^3/uL (0.4-5.4); Lymphocytes % (auto) 7.1 % (10.0-50.0); Mean Corpuscular Hemoglobin 31.5 pg (28.0-32.0); Mean Corpuscular Hgb Conc. 33.9 g/dL (32.0-36.0); Mean Corpuscular Volume 92.9 fL (80.0-100.0); Monocytes % (auto) 5.6 % (0.0-12.0); Neutrophils # (auto) 15.2 10 ^3/uL (1.6-8.6); Neutrophils % (auto) 86.8 % (37.0-80.0); Red Blood Cells 5.08 10^6/uL (4.5-5.90); Red Cell Distribution Width 12.7 % (11.8-14.3); White Blood Cell 17.5 10^3/uL (4.4-10.8)
[2021-06-24 08:10] VITALS: BP 117/74
[2021-06-24 08:16] LABS: Potassium 3.9 mmol/L (3.5-5.1)
[2021-06-24 08:25] LABS: BUN/Creatinine Ratio 59.1; Calcium 8.4 mg/dL (8.5-10.1)
[2021-06-24 09:00] VITALS: BP 117/74
[2021-06-24] MEDS ORDERED: FUROSEMIDE 20 MG/2 ML VIAL IV SCH (10:00)
[2021-06-24] MEDS ORDERED: POTASSIUM CHL 20 Meq TABLET PO SCH (10:00)
[2021-06-24] MEDS: DexAMETHasone SOD PHOS 4 MG/1ML SDV INJ IV SCH ×2 (10:32→21:28)
[2021-06-24] MEDS: FAMOTIDINE (10MG/ML) 2ML VL IV SCH (10:33)
[2021-06-24] MEDS: ENOXAPARIN SOD 80 MG/0.8ML SYRINGE SC SCH ×2 (10:33→21:29)
[2021-06-24] MEDS: Glucerna Carbsteady SHAKE Vanilla 8oz PO SCH ×3 (10:34→18:26)
[2021-06-24] MEDS: ERGOCALCIFEROL 50,000 UNIT(1.25MG) CAP PO SCH (11:00)
[2021-06-24 13:00] VITALS: BP 124/75
[2021-06-24 17:00] VITALS: BP 107/68
[2021-06-24] MEDS: FUROSEMIDE 20 MG/2 ML VIAL IV SCH (18:30)
[2021-06-24] MEDS: POTASSIUM CHL 20 Meq TABLET PO SCH (21:29)
[2021-06-24 21:42] VITALS: BP 117/68
[2021-06-24] MEDS: TEMAZEPAM 15 MG CAP PO PRN (22:34)
[2021-06-25 05:00] VITALS: BP 122/69
[2021-06-25 05:56] LABS: Basophils # (auto) 0.1 10 ^3/uL (0-0.2); Basophils % (auto) 0.3 % (0.0-2.0); Eosinophils # (auto) 0.1 10 ^3/uL (0-0.8); Eosinophils % (auto) 0.4 % (0.0-7.0); Hematocrit 45.7 % (41.0-53.0); Hemoglobin 15.7 g/dL (13.5-17.5); Lymphocytes # (auto) 1.1 10 ^3/uL (0.4-5.4); Lymphocytes % (auto) 7.4 % (10.0-50.0); Mean Corpuscular Hemoglobin 32.1 pg (28.0-32.0); Mean Corpuscular Hgb Conc. 34.4 g/dL (32.0-36.0); Mean Corpuscular Volume 93.3 fL (80.0-100.0); Monocytes # (auto) 0.7 10 ^3/uL (0-1.3); Monocytes % (auto) 4.4 % (0.0-12.0); Neutrophils # (auto) 13.1 10 ^3/uL (1.6-8.6); Neutrophils % (auto) 87.5 % (37.0-80.0); Nucleated Red Blood Cells % 0.1 %; Red Cell Distribution Width 12.9 % (11.8-14.3)
[2021-06-25] MEDS: PIPERACILLIN-TAZOB 3.375GM 100 ML IV SCH ×3 (06:00→21:12)
[2021-06-25] MEDS: SALINE 0.65 % NASAL SPRAY 45ML BOTTLE EACHNOSTRI SCH ×4 (06:00→21:12)
[2021-06-25] MEDS: FUROSEMIDE 20 MG/2 ML VIAL IV SCH ×2 (06:01→17:31)
[2021-06-25 06:16] LABS: BUN/Creatinine Ratio 51.1; Calcium 8.5 mg/dL (8.5-10.1); Potassium 4.3 mmol/L (3.5-5.1)
[2021-06-25] MEDS: BUDESONIDE (INHALATION) 180 MCG IH IN SCH ×2 (06:44→17:37)
[2021-06-25] MEDS: ALBUTEROL SULF HFA 90MCG INH 200DOSE IN PRN ×2 (06:44→17:38)
[2021-06-25] MEDS: Glucerna Carbsteady SHAKE Vanilla 8oz PO SCH ×3 (07:33→17:24)
[2021-06-25] MEDS: FAMOTIDINE (10MG/ML) 2ML VL IV SCH (08:41)
[2021-06-25] MEDS: POTASSIUM CHL 20 Meq TABLET PO SCH ×2 (08:41→21:13)
[2021-06-25] MEDS: ENOXAPARIN SOD 80 MG/0.8ML SYRINGE SC SCH ×2 (08:42→21:14)
[2021-06-25 09:00] VITALS: BP 108/71
[2021-06-25] MEDS: DexAMETHasone SOD PHOS 4 MG/1ML SDV INJ IV SCH ×2 (11:47→21:13)
[2021-06-25 12:53] VITALS: BP 110/66
[2021-06-25] MEDS: LORazepam 2MG/ML-1ML VIAL IV PRN ×2 (14:36→21:14)
[2021-06-25] MEDS: DOCUSATE CALCIUM 240 MG CAP PO PRN (14:36)
[2021-06-25] MEDS ORDERED: FUROSEMIDE 20 MG/2 ML VIAL IV ONE (16:00)
[2021-06-25 16:36] VITALS: BP 125/69
[2021-06-25 22:00] VITALS: BP 113/70
[2021-06-26] MEDS: ALBUTEROL SULF HFA 90MCG INH 200DOSE IN PRN ×2 (06:08→22:01)
[2021-06-26] MEDS: BUDESONIDE (INHALATION) 180 MCG IH IN SCH ×2 (06:08→22:01)
[2021-06-26] MEDS: PIPERACILLIN-TAZOB 3.375GM 100 ML IV SCH ×3 (06:57→20:11)
[2021-06-26] MEDS: SALINE 0.65 % NASAL SPRAY 45ML BOTTLE EACHNOSTRI SCH ×4 (06:58→21:32)
[2021-06-26] MEDS: FUROSEMIDE 20 MG/2 ML VIAL IV SCH ×2 (06:58→17:30)
[2021-06-26 09:00] VITALS: BP 122/82
[2021-06-26] MEDS: Glucerna Carbsteady SHAKE Vanilla 8oz PO SCH ×3 (09:38→17:30)
[2021-06-26] MEDS: DexAMETHasone SOD PHOS 4 MG/1ML SDV INJ IV SCH ×2 (09:39→21:32)
[2021-06-26] MEDS: ENOXAPARIN SOD 80 MG/0.8ML SYRINGE SC SCH ×2 (09:39→21:33)
[2021-06-26] MEDS: POTASSIUM CHL 20 Meq TABLET PO SCH ×2 (09:39→21:33)
[2021-06-26] MEDS: FAMOTIDINE (10MG/ML) 2ML VL IV SCH (09:39)
[2021-06-26 13:00] VITALS: BP 113/77
[2021-06-26] MEDS: LORazepam 2MG/ML-1ML VIAL IV PRN (13:21)
[2021-06-26 17:00] VITALS: BP 108/81
[2021-06-26 22:17] VITALS: BP 115/72
[2021-06-27] VITALS (8 sets, daily range): BP systolic 102–124; BP diastolic 50–77
[2021-06-27] MEDS: PIPERACILLIN-TAZOB 3.375GM 100 ML IV SCH (05:18)
[2021-06-27] MEDS: SALINE 0.65 % NASAL SPRAY 45ML BOTTLE EACHNOSTRI SCH ×4 (05:19→20:59)
[2021-06-27] MEDS: FUROSEMIDE 20 MG/2 ML VIAL IV SCH ×2 (05:33→18:29)
[2021-06-27] MEDS: BUDESONIDE (INHALATION) 180 MCG IH IN SCH ×2 (06:31→23:13)
[2021-06-27] MEDS: ALBUTEROL SULF HFA 90MCG INH 200DOSE IN PRN ×2 (06:31→23:13)
[2021-06-27 06:47] LABS: Potassium 4.2 mmol/L (3.5-5.1)
[2021-06-27 06:56] LABS: Albumin 2.9 g/dL (3.4-5.0); BUN/Creatinine Ratio 52.5; Bilirubin, Total 1.2 mg/dL (0.2-1.0); Calcium 8.3 mg/dL (8.5-10.1); Total Protein 5.9 g/dL (6.4-8.2)
[2021-06-27 07:21] LABS: Hematocrit 44.4 % (41.0-53.0); Mean Corpuscular Hemoglobin 31.8 pg (28.0-32.0); Mean Corpuscular Hgb Conc. 33.7 g/dL (32.0-36.0); Mean Corpuscular Volume 94.4 fL (80.0-100.0); Red Blood Cells 4.71 10^6/uL (4.5-5.90); Red Cell Distribution Width 12.9 % (11.8-14.3); White Blood Cell 17.7 10^3/uL (4.4-10.8)
[2021-06-27 07:25] LABS: Band Neutrophils % (manual) 0; Basophils % (manual) 0 (0.0-2.0); Blast Cells 0; Eosinophils % (manual) 0 (0-7); Metamyelocytes % 0; Myelocytes % 0; Promyelocytes % 0; Reactive Lymphocytes 0
[2021-06-27 08:59] LABS: Lymphocytes % (manual) 3 (10.0-50.0); Monocytes % (manual) 3 (0-12)
[2021-06-27] MEDS: DexAMETHasone SOD PHOS 4 MG/1ML SDV INJ IV SCH ×2 (10:54→20:46)
[2021-06-27] MEDS: FAMOTIDINE (10MG/ML) 2ML VL IV SCH (10:54)
[2021-06-27] MEDS: LORazepam 2MG/ML-1ML VIAL IV PRN ×2 (10:54→21:22)
[2021-06-27] MEDS: Glucerna Carbsteady SHAKE Vanilla 8oz PO SCH ×3 (10:54→18:04)
[2021-06-27] MEDS: POTASSIUM CHL 20 Meq TABLET PO SCH ×2 (10:55→20:47)
[2021-06-27] MEDS: ENOXAPARIN SOD 80 MG/0.8ML SYRINGE SC SCH ×2 (10:55→20:47)
[2021-06-27] MEDS: CLINDAMYCIN 600MG IV 50 ML IV SCH ×2 (14:35→20:46)
[2021-06-28 05:26] VITALS: BP 107/71
[2021-06-28] MEDS: BUDESONIDE (INHALATION) 180 MCG IH IN SCH ×2 (05:26→22:00)
[2021-06-28] MEDS: ALBUTEROL SULF HFA 90MCG INH 200DOSE IN PRN (05:26)
[2021-06-28] MEDS: SALINE 0.65 % NASAL SPRAY 45ML BOTTLE EACHNOSTRI SCH ×4 (06:00→21:16)
[2021-06-28] MEDS: CLINDAMYCIN 600MG IV 50 ML IV SCH ×3 (06:00→21:16)
[2021-06-28] MEDS: FUROSEMIDE 20 MG/2 ML VIAL IV SCH ×2 (06:04→18:30)
[2021-06-28 06:55] LABS: Hemoglobin 14.7 g/dL (13.5-17.5); Mean Corpuscular Hemoglobin 32.6 pg (28.0-32.0); Mean Corpuscular Hgb Conc. 34.9 g/dL (32.0-36.0); Mean Corpuscular Volume 93.4 fL (80.0-100.0); White Blood Cell 16.2 10^3/uL (4.4-10.8)
[2021-06-28 07:06] LABS: Band Neutrophils % (manual) 0; Basophils % (manual) 0 (0.0-2.0); Blast Cells 0; Eosinophils % (manual) 0 (0-7); Metamyelocytes % 0; Myelocytes % 0; Promyelocytes % 0; Reactive Lymphocytes 0
[2021-06-28 07:15] LABS: BUN/Creatinine Ratio 61.8; Calcium 8.2 mg/dL (8.5-10.1); Potassium 4.3 mmol/L (3.5-5.1)
[2021-06-28 08:26] LABS: Lymphocytes % (manual) 9 (10.0-50.0); Monocytes % (manual) 4 (0-12)
[2021-06-28 08:31] VITALS: BP 102/67
[2021-06-28] MEDS: Glucerna Carbsteady SHAKE Vanilla 8oz PO SCH ×3 (08:38→18:17)
[2021-06-28] MEDS: DexAMETHasone SOD PHOS 4 MG/1ML SDV INJ IV SCH ×2 (09:37→21:17)
[2021-06-28] MEDS: FAMOTIDINE (10MG/ML) 2ML VL IV SCH (09:38)
[2021-06-28] MEDS: levoFLOXacin 500MG 100 ML IV SCH (09:38)
[2021-06-28] MEDS: ENOXAPARIN SOD 80 MG/0.8ML SYRINGE SC SCH ×2 (09:38→21:18)
[2021-06-28] MEDS: POTASSIUM CHL 20 Meq TABLET PO SCH ×2 (09:39→21:18)
[2021-06-28] MEDS: DOCUSATE CALCIUM 240 MG CAP PO PRN (10:49)
[2021-06-28 13:00] VITALS: BP 99/75
[2021-06-28] MEDS ORDERED: LIDOCAINE 1% HCL (LOCAL ANESTH.) INJ 20ML MDV ONE (15:15)
[2021-06-28 16:55] VITALS: BP 104/74
[2021-06-28] MEDS: LORazepam 2MG/ML-1ML VIAL IV PRN (21:19)
[2021-06-28 21:51] VITALS: BP 93/55
[2021-06-29] MEDS: SALINE 0.65 % NASAL SPRAY 45ML BOTTLE EACHNOSTRI SCH ×4 (04:56→21:33)
[2021-06-29] MEDS: CLINDAMYCIN 600MG IV 50 ML IV SCH ×3 (04:56→21:33)
[2021-06-29] MEDS: FUROSEMIDE 20 MG/2 ML VIAL IV SCH ×2 (05:06→17:37)
[2021-06-29 05:13] VITALS: BP 107/64
[2021-06-29] MEDS: ALBUTEROL SULF HFA 90MCG INH 200DOSE IN PRN ×2 (06:01→22:22)
[2021-06-29] MEDS: BUDESONIDE (INHALATION) 180 MCG IH IN SCH ×2 (06:01→22:22)
[2021-06-29 09:00] VITALS: BP 112/74
[2021-06-29] MEDS: DexAMETHasone SOD PHOS 4 MG/1ML SDV INJ IV SCH ×2 (09:22→21:33)
[2021-06-29] MEDS: Glucerna Carbsteady SHAKE Vanilla 8oz PO SCH ×3 (09:22→17:42)
[2021-06-29] MEDS: POTASSIUM CHL 20 Meq TABLET PO SCH ×2 (09:23→21:34)
[2021-06-29] MEDS: levoFLOXacin 500MG 100 ML IV SCH (09:23)
[2021-06-29] MEDS: FAMOTIDINE (10MG/ML) 2ML VL IV SCH (09:23)
[2021-06-29] MEDS: DOCUSATE CALCIUM 240 MG CAP PO PRN (09:24)
[2021-06-29] MEDS: ENOXAPARIN SOD 80 MG/0.8ML SYRINGE SC SCH ×2 (09:24→21:34)
[2021-06-29] MEDS: LORazepam 2MG/ML-1ML VIAL IV PRN ×2 (09:24→21:39)
[2021-06-29 11:29] VITALS: BP 112/74
[2021-06-29 13:00] VITALS: BP 109/70
[2021-06-29 17:28] VITALS: BP 109/69
[2021-06-29 21:50] VITALS: BP 110/72
[2021-06-30 05:00] VITALS: BP 112/68
[2021-06-30] MEDS: FUROSEMIDE 20 MG/2 ML VIAL IV SCH ×2 (05:42→17:47)
[2021-06-30] MEDS: CLINDAMYCIN 600MG IV 50 ML IV SCH ×3 (05:42→22:10)
[2021-06-30] MEDS: SALINE 0.65 % NASAL SPRAY 45ML BOTTLE EACHNOSTRI SCH ×4 (05:42→22:10)
[2021-06-30 06:47] LABS: BUN/Creatinine Ratio 56.1; CRP High Sensitivity 0.67 mg/dL (< 0.3); Calcium 8.2 mg/dL (8.5-10.1); Potassium 4.2 mmol/L (3.5-5.1)
[2021-06-30 06:51] LABS: Hematocrit 43.5 % (41.0-53.0); Hemoglobin 15.4 g/dL (13.5-17.5); Mean Corpuscular Hgb Conc. 35.3 g/dL (32.0-36.0); Mean Corpuscular Volume 93.5 fL (80.0-100.0); Red Blood Cells 4.66 10^6/uL (4.5-5.90); Red Cell Distribution Width 13.2 % (11.8-14.3); White Blood Cell 14.4 10^3/uL (4.4-10.8)
[2021-06-30 07:22] LABS: Basophils % (manual) 0 (0.0-2.0); Blast Cells 0; Metamyelocytes % 0; Myelocytes % 0; Promyelocytes % 0; Reactive Lymphocytes 0
[2021-06-30] MEDS: POTASSIUM CHL 20 Meq TABLET PO SCH (07:55)
[2021-06-30] MEDS: ENOXAPARIN SOD 80 MG/0.8ML SYRINGE SC SCH ×2 (07:55→22:11)
[2021-06-30] MEDS: Glucerna Carbsteady SHAKE Vanilla 8oz PO SCH ×3 (07:55→17:47)
[2021-06-30] MEDS: levoFLOXacin 500MG 100 ML IV SCH (07:55)
[2021-06-30] MEDS: DexAMETHasone SOD PHOS 4 MG/1ML SDV INJ IV SCH (07:55)
[2021-06-30] MEDS: DOCUSATE CALCIUM 240 MG CAP PO PRN (08:12)
[2021-06-30 09:00] VITALS: BP 97/67
[2021-06-30 09:40] LABS: Band Neutrophils % (manual) 1; Eosinophils % (manual) 3 (0-7); Lymphocytes % (manual) 9 (10.0-50.0); Monocytes % (manual) 9 (0-12)
[2021-06-30] MEDS: FAMOTIDINE (10MG/ML) 2ML VL IV SCH (10:00)
[2021-06-30 13:00] VITALS: BP 111/69
[2021-06-30 17:00] VITALS: BP 108/70
[2021-06-30] MEDS: ALBUTEROL SULF HFA 90MCG INH 200DOSE IN PRN (19:11)
[2021-06-30] MEDS: BUDESONIDE (INHALATION) 180 MCG IH IN SCH (19:11)
[2021-06-30 21:33] VITALS: BP 106/68
[2021-06-30] MEDS: POTASSIUM EFFERVESENT TAB 25 MEQ PO SCH (22:11)
[2021-06-30] MEDS: TEMAZEPAM 15 MG CAP PO PRN (22:12)
[2021-07-01] VITALS (10 sets, daily range): BP systolic 91–118; BP diastolic 53–66
[2021-07-01] MEDS: CLINDAMYCIN 600MG IV 50 ML IV SCH ×3 (06:28→21:49)
[2021-07-01] MEDS: FUROSEMIDE 20 MG/2 ML VIAL IV SCH ×2 (06:28→17:52)
[2021-07-01] MEDS: SALINE 0.65 % NASAL SPRAY 45ML BOTTLE EACHNOSTRI SCH ×4 (06:28→21:49)
[2021-07-01] MEDS: BUDESONIDE (INHALATION) 180 MCG IH IN SCH ×2 (06:30→21:50)
[2021-07-01] MEDS: ALBUTEROL SULF HFA 90MCG INH 200DOSE IN PRN (06:30)
[2021-07-01] MEDS: Glucerna Carbsteady SHAKE Vanilla 8oz PO SCH ×3 (09:13→17:52)
[2021-07-01] MEDS: FAMOTIDINE (10MG/ML) 2ML VL IV SCH (09:13)
[2021-07-01] MEDS: DexAMETHasone SOD PHOS 4 MG/1ML SDV INJ IV SCH (09:13)
[2021-07-01] MEDS: levoFLOXacin 500MG 100 ML IV SCH (09:13)
[2021-07-01] MEDS: ENOXAPARIN SOD 80 MG/0.8ML SYRINGE SC SCH ×2 (09:14→21:50)
[2021-07-01] MEDS: POTASSIUM EFFERVESENT TAB 25 MEQ PO SCH ×2 (09:14→21:49)
[2021-07-01] MEDS: ERGOCALCIFEROL 50,000 UNIT(1.25MG) CAP PO SCH (09:14)
[2021-07-01] MEDS ORDERED: LACTULOSE 20Gm/30ML SOLN PO ONE (13:00)
[2021-07-02] VITALS (10 sets, daily range): BP systolic 102–118; BP diastolic 61–78
[2021-07-02] MEDS: BUDESONIDE (INHALATION) 180 MCG IH IN SCH ×2 (05:46→18:32)
[2021-07-02] MEDS: ALBUTEROL SULF HFA 90MCG INH 200DOSE IN PRN ×2 (05:46→18:32)
[2021-07-02] MEDS: CLINDAMYCIN 600MG IV 50 ML IV SCH ×3 (06:33→22:37)
[2021-07-02] MEDS: FUROSEMIDE 20 MG/2 ML VIAL IV SCH ×2 (06:33→17:19)
[2021-07-02] MEDS: SALINE 0.65 % NASAL SPRAY 45ML BOTTLE EACHNOSTRI SCH ×4 (06:34→21:51)
[2021-07-02] MEDS: Glucerna Carbsteady SHAKE Vanilla 8oz PO SCH ×3 (09:37→18:00)
[2021-07-02] MEDS: DexAMETHasone SOD PHOS 4 MG/1ML SDV INJ IV SCH (09:51)
[2021-07-02] MEDS: levoFLOXacin 500MG 100 ML IV SCH (09:51)
[2021-07-02] MEDS: FAMOTIDINE (10MG/ML) 2ML VL IV SCH (09:52)
[2021-07-02] MEDS: ENOXAPARIN SOD 80 MG/0.8ML SYRINGE SC SCH ×2 (09:52→22:38)
[2021-07-02] MEDS: POTASSIUM EFFERVESENT TAB 25 MEQ PO SCH ×2 (09:52→22:38)
[2021-07-02] MEDS: LACTULOSE 20Gm/30ML SOLN PO SCH (14:41)
[2021-07-02] MEDS: METOCLOPRAMIDE HCL 5MG/ml INJ 2ml VIAL IV SCH (22:38)
[2021-07-03 05:48] VITALS: BP 122/74
[2021-07-03] MEDS: ALBUTEROL SULF HFA 90MCG INH 200DOSE IN PRN ×2 (06:06→23:03)
[2021-07-03] MEDS: BUDESONIDE (INHALATION) 180 MCG IH IN SCH ×2 (06:07→22:00)
[2021-07-03] MEDS: SALINE 0.65 % NASAL SPRAY 45ML BOTTLE EACHNOSTRI SCH ×4 (06:31→21:56)
[2021-07-03] MEDS: CLINDAMYCIN 600MG IV 50 ML IV SCH ×3 (06:32→21:56)
[2021-07-03] MEDS: FUROSEMIDE 20 MG/2 ML VIAL IV SCH ×2 (06:32→17:49)
[2021-07-03] MEDS: METOCLOPRAMIDE HCL 5MG/ml INJ 2ml VIAL IV SCH ×3 (06:32→21:57)
[2021-07-03] MEDS: LORazepam 2MG/ML-1ML VIAL IV PRN (06:52)
[2021-07-03] MEDS: Glucerna Carbsteady SHAKE Vanilla 8oz PO SCH ×3 (08:00→17:50)
[2021-07-03] MEDS: DexAMETHasone SOD PHOS 4 MG/1ML SDV INJ IV SCH (09:09)
[2021-07-03] MEDS: levoFLOXacin 500MG 100 ML IV SCH (09:09)
[2021-07-03] MEDS: FAMOTIDINE (10MG/ML) 2ML VL IV SCH (09:09)
[2021-07-03] MEDS: POTASSIUM EFFERVESENT TAB 25 MEQ PO SCH ×2 (09:09→21:57)
[2021-07-03] MEDS: ENOXAPARIN SOD 80 MG/0.8ML SYRINGE SC SCH ×2 (09:09→21:57)
[2021-07-03 09:12] VITALS: BP 108/68
[2021-07-03 12:32] VITALS: BP 100/64
[2021-07-03] MEDS: LACTULOSE 20Gm/30ML SOLN PO SCH (13:00)
[2021-07-03 16:31] VITALS: BP 103/51
[2021-07-03 18:25] VITALS: BP 103/51
[2021-07-03 21:42] VITALS: BP 129/74
[2021-07-03] MEDS: TEMAZEPAM 15 MG CAP PO PRN (23:06)
[2021-07-04] VITALS (7 sets, daily range): BP systolic 106–129; BP diastolic 50–74
[2021-07-04] MEDS: BUDESONIDE (INHALATION) 180 MCG IH IN SCH ×2 (06:10→18:49)
[2021-07-04] MEDS: ALBUTEROL SULF HFA 90MCG INH 200DOSE IN PRN ×2 (06:11→21:17)
[2021-07-04] MEDS: SALINE 0.65 % NASAL SPRAY 45ML BOTTLE EACHNOSTRI SCH ×4 (06:36→21:37)
[2021-07-04] MEDS: CLINDAMYCIN 600MG IV 50 ML IV SCH ×2 (06:36→13:48)
[2021-07-04] MEDS: METOCLOPRAMIDE HCL 5MG/ml INJ 2ml VIAL IV SCH ×3 (06:37→21:37)
[2021-07-04] MEDS: FUROSEMIDE 20 MG/2 ML VIAL IV SCH ×2 (06:37→17:35)
[2021-07-04] MEDS: levoFLOXacin 500MG 100 ML IV SCH (09:20)
[2021-07-04] MEDS: DexAMETHasone SOD PHOS 4 MG/1ML SDV INJ IV SCH (09:20)
[2021-07-04] MEDS: POTASSIUM EFFERVESENT TAB 25 MEQ PO SCH ×2 (09:21→21:36)
[2021-07-04] MEDS: ENOXAPARIN SOD 80 MG/0.8ML SYRINGE SC SCH ×2 (09:21→21:36)
[2021-07-04] MEDS: FAMOTIDINE (10MG/ML) 2ML VL IV SCH (09:21)
[2021-07-04] MEDS: Glucerna Carbsteady SHAKE Vanilla 8oz PO SCH ×3 (09:57→17:36)
[2021-07-04] MEDS: LACTULOSE 20Gm/30ML SOLN PO SCH (12:31)
[2021-07-05 05:00] VITALS: BP 109/75
[2021-07-05] MEDS: FUROSEMIDE 20 MG/2 ML VIAL IV SCH ×2 (05:33→17:35)
[2021-07-05] MEDS: METOCLOPRAMIDE HCL 5MG/ml INJ 2ml VIAL IV SCH ×3 (05:33→23:07)
[2021-07-05] MEDS: SALINE 0.65 % NASAL SPRAY 45ML BOTTLE EACHNOSTRI SCH ×4 (05:34→23:16)
[2021-07-05] MEDS: ALBUTEROL SULF HFA 90MCG INH 200DOSE IN PRN ×2 (06:08→22:43)
[2021-07-05] MEDS: BUDESONIDE (INHALATION) 180 MCG IH IN SCH ×2 (06:08→22:15)
[2021-07-05 06:59] LABS: Basophils # (auto) 0 10 ^3/uL (0-0.2); Basophils % (auto) 0.3 % (0.0-2.0); Eosinophils # (auto) 0.6 10 ^3/uL (0-0.8); Eosinophils % (auto) 5.5 % (0.0-7.0); Hematocrit 41.2 % (41.0-53.0); Hemoglobin 14.8 g/dL (13.5-17.5); Lymphocytes # (auto) 0.9 10 ^3/uL (0.4-5.4); Lymphocytes % (auto) 7.9 % (10.0-50.0); Mean Corpuscular Hemoglobin 32.8 pg (28.0-32.0); Mean Corpuscular Hgb Conc. 35.8 g/dL (32.0-36.0); Mean Corpuscular Volume 91.7 fL (80.0-100.0); Monocytes # (auto) 0.3 10 ^3/uL (0-1.3); Monocytes % (auto) 3.1 % (0.0-12.0); Neutrophils # (auto) 9.1 10 ^3/uL (1.6-8.6); Neutrophils % (auto) 83.2 % (37.0-80.0); Nucleated Red Blood Cells % 0.1 %; White Blood Cell 10.9 10^3/uL (4.4-10.8)
[2021-07-05 07:18] LABS: BUN/Creatinine Ratio 47.8; Calcium 8.3 mg/dL (8.5-10.1); Potassium 3.5 mmol/L (3.5-5.1)
[2021-07-05 08:00] VITALS: BP 107/73
[2021-07-05 09:00] VITALS: BP 107/73
[2021-07-05] MEDS: FAMOTIDINE (10MG/ML) 2ML VL IV SCH (09:24)
[2021-07-05] MEDS: levoFLOXacin 500MG 100 ML IV SCH ×2 (09:24→12:23)
[2021-07-05] MEDS: DexAMETHasone SOD PHOS 4 MG/1ML SDV INJ IV SCH (09:24)
[2021-07-05] MEDS: LACTULOSE 20Gm/30ML SOLN PO SCH ×2 (09:24→12:23)
[2021-07-05] MEDS: ENOXAPARIN SOD 80 MG/0.8ML SYRINGE SC SCH ×2 (09:25→23:08)
[2021-07-05] MEDS: POTASSIUM EFFERVESENT TAB 25 MEQ PO SCH ×2 (09:25→23:08)
[2021-07-05] MEDS: Glucerna Carbsteady SHAKE Vanilla 8oz PO SCH ×3 (09:45→18:54)
[2021-07-05 13:00] VITALS: BP 113/79
[2021-07-05 16:56] VITALS: BP 106/72
[2021-07-05 20:00] VITALS: BP 108/70
[2021-07-05] MEDS: TEMAZEPAM 15 MG CAP PO PRN (23:16)
[2021-07-06 05:08] VITALS: BP 110/73
[2021-07-06] MEDS: METOCLOPRAMIDE HCL 5MG/ml INJ 2ml VIAL IV SCH ×3 (05:45→22:35)
[2021-07-06] MEDS: FUROSEMIDE 20 MG/2 ML VIAL IV SCH ×2 (05:49→18:11)
[2021-07-06] MEDS: SALINE 0.65 % NASAL SPRAY 45ML BOTTLE EACHNOSTRI SCH ×4 (05:59→22:35)
[2021-07-06] MEDS: ALBUTEROL SULF HFA 90MCG INH 200DOSE IN PRN ×2 (06:42→22:57)
[2021-07-06] MEDS: BUDESONIDE (INHALATION) 180 MCG IH IN SCH ×2 (06:42→22:00)
[2021-07-06 08:38] VITALS: BP_SYST 109; BP_SYST 110; BP_DIAS 67; BP_DIAS 73
[2021-07-06] MEDS: Glucerna Carbsteady SHAKE Vanilla 8oz PO SCH ×3 (08:59→18:11)
[2021-07-06] MEDS: FAMOTIDINE (10MG/ML) 2ML VL IV SCH (10:21)
[2021-07-06] MEDS: levoFLOXacin 500MG 100 ML IV SCH (10:21)
[2021-07-06] MEDS: LACTULOSE 20Gm/30ML SOLN PO SCH ×2 (10:21→12:03)
[2021-07-06] MEDS: ENOXAPARIN SOD 80 MG/0.8ML SYRINGE SC SCH ×2 (10:21→22:36)
[2021-07-06] MEDS: POTASSIUM EFFERVESENT TAB 25 MEQ PO SCH ×2 (10:21→22:34)
[2021-07-06] MEDS: DexAMETHasone SOD PHOS 4 MG/1ML SDV INJ IV SCH (10:22)
[2021-07-06 13:00] VITALS: BP 114/67
[2021-07-06 17:21] VITALS: BP 107/66
[2021-07-06 22:00] VITALS: BP 115/70
[2021-07-07 05:00] VITALS: BP 103/75
[2021-07-07] MEDS: ALBUTEROL SULF HFA 90MCG INH 200DOSE IN PRN ×2 (05:56→21:00)
[2021-07-07] MEDS: BUDESONIDE (INHALATION) 180 MCG IH IN SCH ×2 (05:56→19:13)
[2021-07-07] MEDS: SALINE 0.65 % NASAL SPRAY 45ML BOTTLE EACHNOSTRI SCH ×4 (06:11→21:19)
[2021-07-07] MEDS: METOCLOPRAMIDE HCL 5MG/ml INJ 2ml VIAL IV SCH ×3 (06:12→21:13)
[2021-07-07] MEDS: FUROSEMIDE 20 MG/2 ML VIAL IV SCH ×2 (06:13→18:02)
[2021-07-07 06:14] LABS: Hematocrit 39.7 % (41.0-53.0); Hemoglobin 13.9 g/dL (13.5-17.5); Mean Corpuscular Hemoglobin 32.3 pg (28.0-32.0); Mean Corpuscular Hgb Conc. 35.1 g/dL (32.0-36.0); Mean Corpuscular Volume 92.1 fL (80.0-100.0); Red Blood Cells 4.31 10^6/uL (4.5-5.90); Red Cell Distribution Width 13.2 % (11.8-14.3); White Blood Cell 8.4 10^3/uL (4.4-10.8)
[2021-07-07 06:26] LABS: Potassium 3.7 mmol/L (3.5-5.1)
[2021-07-07 06:34] LABS: Albumin 2.8 g/dL (3.4-5.0); BUN/Creatinine Ratio 32.4; Bilirubin, Total 0.8 mg/dL (0.2-1.0); Calcium 8.4 mg/dL (8.5-10.1); Total Protein 5.7 g/dL (6.4-8.2)
[2021-07-07 06:35] LABS: Basophils % (manual) 0 (0.0-2.0); Blast Cells 0; Metamyelocytes % 0; Myelocytes % 0; Promyelocytes % 0; Reactive Lymphocytes 0
[2021-07-07] MEDS: Glucerna Carbsteady SHAKE Vanilla 8oz PO SCH ×3 (08:00→18:02)
[2021-07-07 08:10] LABS: Band Neutrophils % (manual) 5; Eosinophils % (manual) 7 (0-7); Lymphocytes % (manual) 8 (10.0-50.0); Monocytes % (manual) 4 (0-12)
[2021-07-07 09:00] VITALS: BP 105/71
[2021-07-07] MEDS: FAMOTIDINE (10MG/ML) 2ML VL IV SCH (10:22)
[2021-07-07] MEDS: DexAMETHasone SOD PHOS 4 MG/1ML SDV INJ IV SCH (10:22)
[2021-07-07] MEDS: POTASSIUM EFFERVESENT TAB 25 MEQ PO SCH ×2 (10:23→21:13)
[2021-07-07] MEDS: ENOXAPARIN SOD 80 MG/0.8ML SYRINGE SC SCH ×2 (10:23→21:13)
[2021-07-07] MEDS: LACTULOSE 20Gm/30ML SOLN PO SCH ×2 (10:24→13:00)
[2021-07-07] MEDS: levoFLOXacin 500MG 100 ML IV SCH (10:24)
[2021-07-07 12:31] VITALS: BP 103/45
[2021-07-07 16:41] VITALS: BP 118/78
[2021-07-07 22:17] VITALS: BP 103/61
[2021-07-08 05:00] VITALS: BP 101/64
[2021-07-08] MEDS: FUROSEMIDE 20 MG/2 ML VIAL IV SCH ×2 (05:44→18:22)
[2021-07-08] MEDS: SALINE 0.65 % NASAL SPRAY 45ML BOTTLE EACHNOSTRI SCH ×4 (05:44→21:02)
[2021-07-08] MEDS: METOCLOPRAMIDE HCL 5MG/ml INJ 2ml VIAL IV SCH ×3 (05:44→21:01)
[2021-07-08 06:17] LABS: Basophils # (auto) 0 10 ^3/uL (0-0.2); Basophils % (auto) 0.3 % (0.0-2.0); Eosinophils # (auto) 0.4 10 ^3/uL (0-0.8); Eosinophils % (auto) 5.5 % (0.0-7.0); Hematocrit 40.3 % (41.0-53.0); Hemoglobin 13.9 g/dL (13.5-17.5); Lymphocytes # (auto) 0.6 10 ^3/uL (0.4-5.4); Lymphocytes % (auto) 8.1 % (10.0-50.0); Mean Corpuscular Hemoglobin 32.2 pg (28.0-32.0); Mean Corpuscular Hgb Conc. 34.6 g/dL (32.0-36.0); Mean Corpuscular Volume 93.1 fL (80.0-100.0); Monocytes # (auto) 0.3 10 ^3/uL (0-1.3); Monocytes % (auto) 4.7 % (0.0-12.0); Neutrophils % (auto) 81.4 % (37.0-80.0); Nucleated Red Blood Cells % 0.1 %; Red Blood Cells 4.33 10^6/uL (4.5-5.90); Red Cell Distribution Width 13.4 % (11.8-14.3); White Blood Cell 7.4 10^3/uL (4.4-10.8)
[2021-07-08] MEDS: BUDESONIDE (INHALATION) 180 MCG IH IN SCH ×2 (06:39→19:03)
[2021-07-08] MEDS: ALBUTEROL SULF HFA 90MCG INH 200DOSE IN PRN (06:39)
[2021-07-08 07:25] LABS: Albumin 2.7 g/dL (3.4-5.0); BUN/Creatinine Ratio 46.7; Calcium 8.8 mg/dL (8.5-10.1)
[2021-07-08 07:28] LABS: Bilirubin, Total 0.9 mg/dL (0.2-1.0); Total Protein 5.7 g/dL (6.4-8.2)
[2021-07-08] MEDS: Glucerna Carbsteady SHAKE Vanilla 8oz PO SCH ×3 (08:19→18:22)
[2021-07-08 09:00] VITALS: BP 111/73
[2021-07-08] MEDS: DexAMETHasone SOD PHOS 4 MG/1ML SDV INJ IV SCH (09:29)
[2021-07-08] MEDS: FAMOTIDINE (10MG/ML) 2ML VL IV SCH (09:29)
[2021-07-08] MEDS: POTASSIUM EFFERVESENT TAB 25 MEQ PO SCH ×2 (09:30→21:01)
[2021-07-08] MEDS: LACTULOSE 20Gm/30ML SOLN PO SCH ×2 (09:30→13:00)
[2021-07-08] MEDS: levoFLOXacin 500MG 100 ML IV SCH (09:30)
[2021-07-08] MEDS: ENOXAPARIN SOD 80 MG/0.8ML SYRINGE SC SCH ×2 (09:30→21:01)
[2021-07-08] MEDS: ERGOCALCIFEROL 50,000 UNIT(1.25MG) CAP PO SCH (11:34)
[2021-07-08 13:00] VITALS: BP 123/72
[2021-07-08 17:00] VITALS: BP 123/69
[2021-07-08] MEDS: TEMAZEPAM 15 MG CAP PO PRN (21:25)
[2021-07-08 22:00] VITALS: BP 102/58
[2021-07-09 05:00] VITALS: BP 103/65
[2021-07-09] MEDS: METOCLOPRAMIDE HCL 5MG/ml INJ 2ml VIAL IV SCH ×3 (05:01→21:40)
[2021-07-09] MEDS: FUROSEMIDE 20 MG/2 ML VIAL IV SCH ×2 (05:01→18:05)
[2021-07-09] MEDS: SALINE 0.65 % NASAL SPRAY 45ML BOTTLE EACHNOSTRI SCH ×4 (05:05→21:46)
[2021-07-09 05:34] LABS: Basophils # (auto) 0.1 10 ^3/uL (0-0.2); Basophils % (auto) 0.6 % (0.0-2.0); Eosinophils # (auto) 0.5 10 ^3/uL (0-0.8); Eosinophils % (auto) 5.8 % (0.0-7.0); Hematocrit 40.4 % (41.0-53.0); Hemoglobin 13.9 g/dL (13.5-17.5); Lymphocytes # (auto) 0.8 10 ^3/uL (0.4-5.4); Lymphocytes % (auto) 10.1 % (10.0-50.0); Mean Corpuscular Hemoglobin 31.8 pg (28.0-32.0); Mean Corpuscular Hgb Conc. 34.5 g/dL (32.0-36.0); Mean Corpuscular Volume 92.3 fL (80.0-100.0); Monocytes # (auto) 0.3 10 ^3/uL (0-1.3); Monocytes % (auto) 4.4 % (0.0-12.0); Neutrophils # (auto) 6.3 10 ^3/uL (1.6-8.6); Neutrophils % (auto) 79.1 % (37.0-80.0); Red Blood Cells 4.37 10^6/uL (4.5-5.90); Red Cell Distribution Width 13.4 % (11.8-14.3); White Blood Cell 7.9 10^3/uL (4.4-10.8)
[2021-07-09 05:47] LABS: Potassium 3.8 mmol/L (3.5-5.1)
[2021-07-09 05:54] LABS: Albumin 2.8 g/dL (3.4-5.0); BUN/Creatinine Ratio 42.9; Bilirubin, Total 0.9 mg/dL (0.2-1.0); Calcium 8.6 mg/dL (8.5-10.1); Total Protein 5.8 g/dL (6.4-8.2)
[2021-07-09] MEDS: BUDESONIDE (INHALATION) 180 MCG IH IN SCH ×2 (08:21→21:57)
[2021-07-09] MEDS: ALBUTEROL SULF HFA 90MCG INH 200DOSE IN PRN ×2 (08:22→21:57)
[2021-07-09 10:00] VITALS: BP 96/62
[2021-07-09] MEDS: LACTULOSE 20Gm/30ML SOLN PO SCH ×2 (10:27→14:05)
[2021-07-09] MEDS: levoFLOXacin 500MG 100 ML IV SCH (10:27)
[2021-07-09] MEDS: ENOXAPARIN SOD 80 MG/0.8ML SYRINGE SC SCH ×2 (10:28→21:41)
[2021-07-09] MEDS: FAMOTIDINE (10MG/ML) 2ML VL IV SCH (10:28)
[2021-07-09] MEDS: Glucerna Carbsteady SHAKE Vanilla 8oz PO SCH ×3 (10:28→18:05)
[2021-07-09] MEDS: POTASSIUM EFFERVESENT TAB 25 MEQ PO SCH ×2 (10:28→21:40)
[2021-07-09] MEDS: DexAMETHasone SOD PHOS 4 MG/1ML SDV INJ IV SCH (10:28)
[2021-07-09 13:00] VITALS: BP 94/61
[2021-07-09 17:00] VITALS: BP 96/67
[2021-07-09 22:00] VITALS: BP 100/54
[2021-07-09] MEDS: LORazepam 2MG/ML-1ML VIAL IV PRN (23:04)
[2021-07-10 05:00] VITALS: BP 98/63
[2021-07-10] MEDS: SALINE 0.65 % NASAL SPRAY 45ML BOTTLE EACHNOSTRI SCH ×4 (06:09→21:44)
[2021-07-10] MEDS: FUROSEMIDE 20 MG/2 ML VIAL IV SCH ×2 (06:10→18:21)
[2021-07-10] MEDS: METOCLOPRAMIDE HCL 5MG/ml INJ 2ml VIAL IV SCH ×3 (06:10→21:44)
[2021-07-10 08:48] VITALS: BP 115/59
[2021-07-10] MEDS: ALBUTEROL SULF HFA 90MCG INH 200DOSE IN PRN (09:14)
[2021-07-10] MEDS: BUDESONIDE (INHALATION) 180 MCG IH IN SCH ×2 (09:14→21:35)
[2021-07-10] MEDS: LACTULOSE 20Gm/30ML SOLN PO SCH ×2 (10:46→13:52)
[2021-07-10] MEDS: FAMOTIDINE (10MG/ML) 2ML VL IV SCH (10:46)
[2021-07-10] MEDS: POTASSIUM EFFERVESENT TAB 25 MEQ PO SCH ×2 (10:46→21:45)
[2021-07-10] MEDS: DexAMETHasone SOD PHOS 4 MG/1ML SDV INJ IV SCH (10:46)
[2021-07-10] MEDS: Glucerna Carbsteady SHAKE Vanilla 8oz PO SCH ×3 (10:46→18:20)
[2021-07-10] MEDS: ENOXAPARIN SOD 80 MG/0.8ML SYRINGE SC SCH ×2 (10:47→21:45)
[2021-07-10 13:00] VITALS: BP 109/59
[2021-07-10 17:24] VITALS: BP 108/70
[2021-07-10 22:20] VITALS: BP 103/58
[2021-07-11 05:10] VITALS: BP 120/71
[2021-07-11] MEDS: SALINE 0.65 % NASAL SPRAY 45ML BOTTLE EACHNOSTRI SCH ×4 (05:28→22:11)
[2021-07-11] MEDS: METOCLOPRAMIDE HCL 5MG/ml INJ 2ml VIAL IV SCH (05:28)
[2021-07-11] MEDS: FUROSEMIDE 20 MG/2 ML VIAL IV SCH ×2 (05:28→18:44)
[2021-07-11] MEDS: Glucerna Carbsteady SHAKE Vanilla 8oz PO SCH ×3 (08:00→17:27)
[2021-07-11 09:00] VITALS: BP 113/65
[2021-07-11] MEDS: ALBUTEROL SULF HFA 90MCG INH 200DOSE IN PRN ×2 (09:12→22:34)
[2021-07-11] MEDS: BUDESONIDE (INHALATION) 180 MCG IH IN SCH ×2 (09:12→22:00)
[2021-07-11] MEDS: FAMOTIDINE (10MG/ML) 2ML VL IV SCH (10:47)
[2021-07-11] MEDS: POTASSIUM EFFERVESENT TAB 25 MEQ PO SCH ×2 (10:47→22:11)
[2021-07-11] MEDS: DexAMETHasone SOD PHOS 4 MG/1ML SDV INJ IV SCH (10:48)
[2021-07-11] MEDS: LACTULOSE 20Gm/30ML SOLN PO SCH (10:56)
[2021-07-11] MEDS: ENOXAPARIN SOD 80 MG/0.8ML SYRINGE SC SCH (10:56)
[2021-07-11 12:50] VITALS: BP 131/85
[2021-07-11] MEDS ORDERED: METOCLOPRAMIDE HCL 5MG/ml INJ 2ml VIAL IV PRN (14:00)
[2021-07-11 17:00] VITALS: BP 116/68
[2021-07-11 22:00] VITALS: BP 108/69
[2021-07-11] MEDS: APIXABAN 5 MG TAB PO SCH (22:11)
[2021-07-12 05:00] VITALS: BP 104/71
[2021-07-12] MEDS: SALINE 0.65 % NASAL SPRAY 45ML BOTTLE EACHNOSTRI SCH ×4 (05:21→22:06)
[2021-07-12] MEDS: FUROSEMIDE 20 MG/2 ML VIAL IV SCH ×2 (05:32→17:55)
[2021-07-12 06:33] LABS: Hematocrit 38.2 % (41.0-53.0); Hemoglobin 13.4 g/dL (13.5-17.5); Mean Corpuscular Hemoglobin 32.4 pg (28.0-32.0); Mean Corpuscular Volume 92.5 fL (80.0-100.0); Red Blood Cells 4.13 10^6/uL (4.5-5.90); Red Cell Distribution Width 13.2 % (11.8-14.3); White Blood Cell 9.1 10^3/uL (4.4-10.8)
[2021-07-12 06:38] LABS: Basophils % (manual) 0 (0.0-2.0); Blast Cells 0; Metamyelocytes % 0; Myelocytes % 0; Promyelocytes % 0; Reactive Lymphocytes 0
[2021-07-12 06:42] LABS: Potassium 3.8 mmol/L (3.5-5.1)
[2021-07-12 06:59] LABS: Albumin 2.8 g/dL (3.4-5.0); BUN/Creatinine Ratio 35.5; Bilirubin, Total 0.8 mg/dL (0.2-1.0); Calcium 8.8 mg/dL (8.5-10.1); Total Protein 5.7 g/dL (6.4-8.2)
[2021-07-12 07:32] LABS: Band Neutrophils % (manual) 10; Eosinophils % (manual) 4 (0-7); Lymphocytes % (manual) 11 (10.0-50.0); Monocytes % (manual) 8 (0-12)
[2021-07-12] MEDS: ALBUTEROL SULF HFA 90MCG INH 200DOSE IN PRN ×2 (07:43→22:23)
[2021-07-12] MEDS: BUDESONIDE (INHALATION) 180 MCG IH IN SCH ×2 (07:43→22:00)
[2021-07-12] MEDS: Glucerna Carbsteady SHAKE Vanilla 8oz PO SCH ×3 (08:00→17:56)
[2021-07-12 09:00] VITALS: BP 101/83
[2021-07-12] MEDS: LORazepam 2MG/ML-1ML VIAL IV PRN (10:14)
[2021-07-12] MEDS: FAMOTIDINE (10MG/ML) 2ML VL IV SCH (10:15)
[2021-07-12] MEDS: DexAMETHasone SOD PHOS 4 MG/1ML SDV INJ IV SCH (10:16)
[2021-07-12] MEDS: LACTULOSE 20Gm/30ML SOLN PO SCH (10:16)
[2021-07-12] MEDS: POTASSIUM EFFERVESENT TAB 25 MEQ PO SCH ×2 (10:16→22:06)
[2021-07-12] MEDS: APIXABAN 5 MG TAB PO SCH ×2 (10:16→22:06)
[2021-07-12 13:00] VITALS: BP 113/65
[2021-07-12 17:47] VITALS: BP 103/67
[2021-07-12 22:00] VITALS: BP 102/69
[2021-07-13 04:53] VITALS: BP 96/60
[2021-07-13] MEDS: SALINE 0.65 % NASAL SPRAY 45ML BOTTLE EACHNOSTRI SCH ×4 (05:23→21:56)
[2021-07-13] MEDS: FUROSEMIDE 20 MG/2 ML VIAL IV SCH ×2 (05:32→17:23)
[2021-07-13] MEDS: BUDESONIDE (INHALATION) 180 MCG IH IN SCH ×2 (06:40→19:19)
[2021-07-13 07:48] LABS: Calcium 8.7 mg/dL (8.5-10.1); Potassium 3.8 mmol/L (3.5-5.1)
[2021-07-13 07:54] LABS: BUN/Creatinine Ratio 40.6; Bilirubin, Total 0.8 mg/dL (0.2-1.0)
[2021-07-13] MEDS: Glucerna Carbsteady SHAKE Vanilla 8oz PO SCH ×3 (08:00→17:23)
[2021-07-13] MEDS: ALBUTEROL SULF HFA 90MCG INH 200DOSE IN PRN ×2 (08:45→22:47)
[2021-07-13 09:00] VITALS: BP 93/60
[2021-07-13] MEDS: DexAMETHasone SOD PHOS 4 MG/1ML SDV INJ IV SCH (09:26)
[2021-07-13] MEDS: FAMOTIDINE (10MG/ML) 2ML VL IV SCH (09:26)
[2021-07-13] MEDS: POTASSIUM EFFERVESENT TAB 25 MEQ PO SCH ×2 (09:26→21:56)
[2021-07-13] MEDS: APIXABAN 5 MG TAB PO SCH ×2 (09:26→21:56)
[2021-07-13] MEDS: LACTULOSE 20Gm/30ML SOLN PO SCH (09:26)
[2021-07-13 12:31] VITALS: BP 113/86
[2021-07-13 16:31] VITALS: BP 103/70
[2021-07-13 22:00] VITALS: BP 107/66
[2021-07-14 04:10] VITALS: BP 104/67
[2021-07-14] MEDS: SALINE 0.65 % NASAL SPRAY 45ML BOTTLE EACHNOSTRI SCH ×4 (05:56→21:39)
[2021-07-14] MEDS: FUROSEMIDE 20 MG/2 ML VIAL IV SCH ×2 (05:56→17:33)
[2021-07-14 07:22] LABS: Albumin 2.8 g/dL (3.4-5.0); Calcium 8.3 mg/dL (8.5-10.1); Potassium 4.3 mmol/L (3.5-5.1)
[2021-07-14 07:31] LABS: BUN/Creatinine Ratio 57.1; Bilirubin, Total 0.6 mg/dL (0.2-1.0); Total Protein 5.7 g/dL (6.4-8.2)
[2021-07-14 09:27] VITALS: BP 100/64
[2021-07-14] MEDS: ALBUTEROL SULF HFA 90MCG INH 200DOSE IN PRN ×2 (09:30→21:00)
[2021-07-14] MEDS: BUDESONIDE (INHALATION) 180 MCG IH IN SCH ×2 (09:30→18:30)
[2021-07-14] MEDS: Glucerna Carbsteady SHAKE Vanilla 8oz PO SCH ×3 (09:40→17:34)
[2021-07-14] MEDS: FAMOTIDINE (10MG/ML) 2ML VL IV SCH (09:40)
[2021-07-14] MEDS: APIXABAN 5 MG TAB PO SCH ×2 (09:40→21:39)
[2021-07-14] MEDS: DexAMETHasone SOD PHOS 4 MG/1ML SDV INJ IV SCH (09:40)
[2021-07-14] MEDS: POTASSIUM EFFERVESENT TAB 25 MEQ PO SCH (09:40)
[2021-07-14] MEDS: LACTULOSE 20Gm/30ML SOLN PO SCH (09:40)
[2021-07-14 17:00] VITALS: BP 105/62
[2021-07-14] MEDS: POTASSIUM CHL 20 Meq TABLET PO SCH (21:39)
[2021-07-14 22:00] VITALS: BP 100/61
[2021-07-15 05:00] VITALS: BP 102/63
[2021-07-15] MEDS: ALBUTEROL SULF HFA 90MCG INH 200DOSE IN PRN ×2 (05:52→20:03)
[2021-07-15] MEDS: BUDESONIDE (INHALATION) 180 MCG IH IN SCH ×2 (05:52→20:03)
[2021-07-15] MEDS: SALINE 0.65 % NASAL SPRAY 45ML BOTTLE EACHNOSTRI SCH ×4 (05:54→21:13)
[2021-07-15] MEDS: FUROSEMIDE 20 MG/2 ML VIAL IV SCH ×2 (05:54→17:58)
[2021-07-15] MEDS: Glucerna Carbsteady SHAKE Vanilla 8oz PO SCH ×3 (08:00→17:58)
[2021-07-15 09:00] VITALS: BP 99/60
[2021-07-15] MEDS: LACTULOSE 20Gm/30ML SOLN PO SCH (10:00)
[2021-07-15] MEDS: POTASSIUM CHL 20 Meq TABLET PO SCH ×2 (10:00→21:13)
[2021-07-15] MEDS: APIXABAN 5 MG TAB PO SCH ×2 (10:00→21:13)
[2021-07-15] MEDS: FAMOTIDINE (10MG/ML) 2ML VL IV SCH (10:00)
[2021-07-15] MEDS: DexAMETHasone SOD PHOS 4 MG/1ML SDV INJ IV SCH (10:00)
[2021-07-15] MEDS: ERGOCALCIFEROL 50,000 UNIT(1.25MG) CAP PO SCH (11:00)
[2021-07-15 13:00] VITALS: BP 105/60
[2021-07-15 17:00] VITALS: BP 126/70
[2021-07-15 22:00] VITALS: BP 105/62
[2021-07-16 05:00] VITALS: BP 98/66
[2021-07-16] MEDS: ALBUTEROL SULF HFA 90MCG INH 200DOSE IN PRN ×2 (05:32→19:32)
[2021-07-16] MEDS: BUDESONIDE (INHALATION) 180 MCG IH IN SCH ×2 (05:33→19:32)
[2021-07-16] MEDS: FUROSEMIDE 20 MG/2 ML VIAL IV SCH ×2 (06:06→17:51)
[2021-07-16] MEDS: SALINE 0.65 % NASAL SPRAY 45ML BOTTLE EACHNOSTRI SCH ×4 (06:06→21:54)
[2021-07-16 06:17] LABS: Basophils # (auto) 0 10 ^3/uL (0-0.2); Basophils % (auto) 0.6 % (0.0-2.0); Eosinophils # (auto) 0.3 10 ^3/uL (0-0.8); Eosinophils % (auto) 3.9 % (0.0-7.0); Hematocrit 37.4 % (41.0-53.0); Hemoglobin 13.3 g/dL (13.5-17.5); Lymphocytes # (auto) 1.4 10 ^3/uL (0.4-5.4); Lymphocytes % (auto) 18.2 % (10.0-50.0); Mean Corpuscular Hgb Conc. 35.6 g/dL (32.0-36.0); Mean Corpuscular Volume 92.8 fL (80.0-100.0); Monocytes # (auto) 0.5 10 ^3/uL (0-1.3); Neutrophils # (auto) 5.6 10 ^3/uL (1.6-8.6); Neutrophils % (auto) 71.3 % (37.0-80.0); Red Blood Cells 4.03 10^6/uL (4.5-5.90); Red Cell Distribution Width 13.5 % (11.8-14.3); White Blood Cell 7.9 10^3/uL (4.4-10.8)
[2021-07-16 06:22] LABS: Albumin 2.9 g/dL (3.4-5.0); Calcium 8.8 mg/dL (8.5-10.1)
[2021-07-16 06:25] LABS: BUN/Creatinine Ratio 40.5; Bilirubin, Total 0.7 mg/dL (0.2-1.0); Total Protein 6.3 g/dL (6.4-8.2)
[2021-07-16] MEDS: Glucerna Carbsteady SHAKE Vanilla 8oz PO SCH ×3 (08:00→17:51)
[2021-07-16 09:00] VITALS: BP 100/63
[2021-07-16] MEDS: LACTULOSE 20Gm/30ML SOLN PO SCH (10:00)
[2021-07-16] MEDS: DexAMETHasone SOD PHOS 4 MG/1ML SDV INJ IV SCH (10:00)
[2021-07-16] MEDS: POTASSIUM CHL 20 Meq TABLET PO SCH ×2 (10:00→21:55)
[2021-07-16] MEDS: FAMOTIDINE 20 MG TAB PO SCH (10:00)
[2021-07-16] MEDS: APIXABAN 5 MG TAB PO SCH ×2 (10:00→21:54)
[2021-07-16 13:00] VITALS: BP 121/70
[2021-07-16 17:00] VITALS: BP 107/76
[2021-07-16 22:00] VITALS: BP 101/61
[2021-07-17 05:00] VITALS: BP 99/65
[2021-07-17] MEDS: SALINE 0.65 % NASAL SPRAY 45ML BOTTLE EACHNOSTRI SCH ×4 (06:07→21:47)
[2021-07-17] MEDS: FUROSEMIDE 20 MG/2 ML VIAL IV SCH ×2 (06:08→18:00)
[2021-07-17] MEDS: Glucerna Carbsteady SHAKE Vanilla 8oz PO SCH ×3 (08:00→18:00)
[2021-07-17 08:30] VITALS: BP 106/66
[2021-07-17] MEDS: ALBUTEROL SULF HFA 90MCG INH 200DOSE IN PRN (09:24)
[2021-07-17] MEDS: BUDESONIDE (INHALATION) 180 MCG IH IN SCH ×2 (09:24→21:45)
[2021-07-17] MEDS: APIXABAN 5 MG TAB PO SCH ×2 (10:00→21:47)
[2021-07-17] MEDS: FAMOTIDINE 20 MG TAB PO SCH (10:00)
[2021-07-17] MEDS: POTASSIUM CHL 20 Meq TABLET PO SCH ×2 (10:00→21:49)
[2021-07-17] MEDS: DexAMETHasone 4 MG TAB PO SCH (10:00)
[2021-07-17] MEDS: LACTULOSE 20Gm/30ML SOLN PO SCH (10:00)
[2021-07-17 12:30] VITALS: BP 101/66
[2021-07-17 17:00] VITALS: BP 104/67
[2021-07-17 20:00] VITALS: BP 101/67
[2021-07-17 22:00] VITALS: BP 101/67
[2021-07-18] VITALS (7 sets, daily range): BP systolic 97–112; BP diastolic 59–68
[2021-07-18] MEDS: SALINE 0.65 % NASAL SPRAY 45ML BOTTLE EACHNOSTRI SCH ×4 (06:00→21:53)
[2021-07-18] MEDS: FUROSEMIDE 20 MG/2 ML VIAL IV SCH ×2 (06:00→17:13)
[2021-07-18] MEDS: BUDESONIDE (INHALATION) 180 MCG IH IN SCH ×2 (06:45→19:10)
[2021-07-18] MEDS: ALBUTEROL SULF HFA 90MCG INH 200DOSE IN PRN ×2 (06:45→19:10)
[2021-07-18] MEDS: Glucerna Carbsteady SHAKE Vanilla 8oz PO SCH ×3 (08:00→17:15)
[2021-07-18] MEDS: FAMOTIDINE 20 MG TAB PO SCH (10:41)
[2021-07-18] MEDS: DexAMETHasone 4 MG TAB PO SCH (10:41)
[2021-07-18] MEDS: POTASSIUM CHL 20 Meq TABLET PO SCH ×2 (10:41→21:53)
[2021-07-18] MEDS: APIXABAN 5 MG TAB PO SCH ×2 (10:41→21:53)
[2021-07-18] MEDS: LACTULOSE 20Gm/30ML SOLN PO SCH (10:41)
[2021-07-19 05:00] VITALS: BP 97/58
[2021-07-19] MEDS: SALINE 0.65 % NASAL SPRAY 45ML BOTTLE EACHNOSTRI SCH ×4 (05:51→21:10)
[2021-07-19] MEDS: FUROSEMIDE 20 MG/2 ML VIAL IV SCH ×2 (05:51→18:01)
[2021-07-19] MEDS: ALBUTEROL SULF HFA 90MCG INH 200DOSE IN PRN ×2 (05:59→21:44)
[2021-07-19] MEDS: BUDESONIDE (INHALATION) 180 MCG IH IN SCH ×2 (05:59→21:44)
[2021-07-19 07:34] LABS: Basophils # (auto) 0.1 10 ^3/uL (0-0.2); Eosinophils # (auto) 0.3 10 ^3/uL (0-0.8); Eosinophils % (auto) 3.1 % (0.0-7.0); Hematocrit 36.7 % (41.0-53.0); Hemoglobin 12.5 g/dL (13.5-17.5); Lymphocytes # (auto) 1.9 10 ^3/uL (0.4-5.4); Lymphocytes % (auto) 21.4 % (10.0-50.0); Mean Corpuscular Hemoglobin 32.2 pg (28.0-32.0); Mean Corpuscular Volume 94.7 fL (80.0-100.0); Monocytes # (auto) 0.5 10 ^3/uL (0-1.3); Monocytes % (auto) 6.2 % (0.0-12.0); Neutrophils # (auto) 5.9 10 ^3/uL (1.6-8.6); Neutrophils % (auto) 68.3 % (37.0-80.0); Nucleated Red Blood Cells % 0.1 %; Red Blood Cells 3.88 10^6/uL (4.5-5.90); Red Cell Distribution Width 13.5 % (11.8-14.3); White Blood Cell 8.7 10^3/uL (4.4-10.8)
[2021-07-19 07:59] LABS: Potassium 4.6 mmol/L (3.5-5.1)
[2021-07-19 08:06] LABS: BUN/Creatinine Ratio 33.3; Calcium 8.4 mg/dL (8.5-10.1)
[2021-07-19 09:00] VITALS: BP 97/59
[2021-07-19] MEDS: LACTULOSE 20Gm/30ML SOLN PO SCH (09:09)
[2021-07-19] MEDS: DexAMETHasone 4 MG TAB PO SCH (09:09)
[2021-07-19] MEDS: APIXABAN 5 MG TAB PO SCH ×2 (09:09→21:11)
[2021-07-19] MEDS: FAMOTIDINE 20 MG TAB PO SCH (09:10)
[2021-07-19] MEDS: Glucerna Carbsteady SHAKE Vanilla 8oz PO SCH ×3 (09:13→18:00)
[2021-07-19] MEDS: POTASSIUM CHL 20 Meq TABLET PO SCH ×2 (09:13→21:11)
[2021-07-19 13:00] VITALS: BP 97/61
[2021-07-19 16:54] VITALS: BP 97/61
[2021-07-19 21:44] VITALS: BP 102/74
[2021-07-20] VITALS (8 sets, daily range): BP systolic 93–120; BP diastolic 20–73
[2021-07-20] MEDS: FUROSEMIDE 20 MG/2 ML VIAL IV SCH ×2 (05:40→17:40)
[2021-07-20] MEDS: SALINE 0.65 % NASAL SPRAY 45ML BOTTLE EACHNOSTRI SCH ×4 (05:40→22:00)
[2021-07-20] MEDS: ALBUTEROL SULF HFA 90MCG INH 200DOSE IN PRN (07:15)
[2021-07-20] MEDS: BUDESONIDE (INHALATION) 180 MCG IH IN SCH ×2 (07:15→22:56)
[2021-07-20] MEDS: Glucerna Carbsteady SHAKE Vanilla 8oz PO SCH ×3 (08:00→17:39)
[2021-07-20] MEDS: DexAMETHasone 4 MG TAB PO SCH (10:32)
[2021-07-20] MEDS: LACTULOSE 20Gm/30ML SOLN PO SCH (10:32)
[2021-07-20] MEDS: APIXABAN 5 MG TAB PO SCH ×2 (10:32→23:06)
[2021-07-20] MEDS: FAMOTIDINE 20 MG TAB PO SCH (10:33)
[2021-07-20] MEDS ORDERED: FLUCONAZOLE 200MG/100ML 100 ML IV ONE (12:45)
[2021-07-21] MEDS: ALBUTEROL SULF HFA 90MCG INH 200DOSE IN PRN ×2 (00:48→09:22)
[2021-07-21 04:50] VITALS: BP 95/65
[2021-07-21] MEDS: FUROSEMIDE 20 MG/2 ML VIAL IV SCH ×2 (05:24→17:21)
[2021-07-21] MEDS: SALINE 0.65 % NASAL SPRAY 45ML BOTTLE EACHNOSTRI SCH ×3 (05:59→17:21)
[2021-07-21 06:49] LABS: Hematocrit 37.4 % (41.0-53.0); Hemoglobin 12.6 g/dL (13.5-17.5); Mean Corpuscular Hemoglobin 31.8 pg (28.0-32.0); Mean Corpuscular Hgb Conc. 33.7 g/dL (32.0-36.0); Mean Corpuscular Volume 94.2 fL (80.0-100.0); Red Blood Cells 3.97 10^6/uL (4.5-5.90); Red Cell Distribution Width 14.3 % (11.8-14.3); White Blood Cell 8.2 10^3/uL (4.4-10.8)
[2021-07-21 06:55] LABS: Basophils % (manual) 0 (0.0-2.0); Blast Cells 0; Metamyelocytes % 0; Myelocytes % 0; Promyelocytes % 0; Reactive Lymphocytes 0
[2021-07-21 07:05] LABS: BUN/Creatinine Ratio 28.9; Potassium 3.9 mmol/L (3.5-5.1)
[2021-07-21 07:58] LABS: Band Neutrophils % (manual) 2; Eosinophils % (manual) 8 (0-7); Lymphocytes % (manual) 20 (10.0-50.0); Monocytes % (manual) 3 (0-12)
[2021-07-21 09:00] VITALS: BP 98/59
[2021-07-21] MEDS: BUDESONIDE (INHALATION) 180 MCG IH IN SCH ×2 (09:22→21:59)
[2021-07-21] MEDS: Glucerna Carbsteady SHAKE Vanilla 8oz PO SCH ×3 (09:46→17:22)
[2021-07-21] MEDS: APIXABAN 5 MG TAB PO SCH ×2 (09:47→22:38)
[2021-07-21] MEDS: FLUCONAZOLE 200MG/100ML 100 ML IV SCH (09:47)
[2021-07-21] MEDS: POTASSIUM CHL 20 Meq TABLET PO SCH (09:47)
[2021-07-21] MEDS: FAMOTIDINE 20 MG TAB PO SCH (09:48)
[2021-07-21] MEDS: LORazepam 2MG/ML-1ML VIAL IV PRN (09:48)
[2021-07-21 12:30] VITALS: BP 100/60
[2021-07-21 17:00] VITALS: BP 98/66
[2021-07-21 22:00] VITALS: BP 102/72
[2021-07-22] MEDS: SALINE 0.65 % NASAL SPRAY 45ML BOTTLE EACHNOSTRI SCH ×5 (01:31→22:19)
[2021-07-22 05:00] VITALS: BP 97/65
[2021-07-22] MEDS: FUROSEMIDE 20 MG/2 ML VIAL IV SCH ×2 (06:00→16:50)
[2021-07-22] MEDS: BUDESONIDE (INHALATION) 180 MCG IH IN SCH ×2 (07:16→21:50)
[2021-07-22] MEDS: ALBUTEROL SULF HFA 90MCG INH 200DOSE IN PRN ×2 (07:16→21:50)
[2021-07-22 09:00] VITALS: BP 98/60
[2021-07-22] MEDS: Glucerna Carbsteady SHAKE Vanilla 8oz PO SCH ×3 (10:13→16:51)
[2021-07-22] MEDS: APIXABAN 5 MG TAB PO SCH ×2 (10:14→22:19)
[2021-07-22] MEDS: FLUCONAZOLE 200MG/100ML 100 ML IV SCH (10:14)
[2021-07-22] MEDS: POTASSIUM CHL 20 Meq TABLET PO SCH (10:15)
[2021-07-22] MEDS: FAMOTIDINE 20 MG TAB PO SCH (10:16)
[2021-07-22] MEDS: ERGOCALCIFEROL 50,000 UNIT(1.25MG) CAP PO SCH (10:17)
[2021-07-22 13:00] VITALS: BP 110/81
[2021-07-22 17:00] VITALS: BP 101/70
[2021-07-22 22:00] VITALS: BP 109/60
[2021-07-23 05:00] VITALS: BP 99/67
[2021-07-23] MEDS: BUDESONIDE (INHALATION) 180 MCG IH IN SCH ×2 (05:47→21:08)
[2021-07-23] MEDS: ALBUTEROL SULF HFA 90MCG INH 200DOSE IN PRN (05:47)
[2021-07-23] MEDS: SALINE 0.65 % NASAL SPRAY 45ML BOTTLE EACHNOSTRI SCH ×4 (06:44→21:08)
[2021-07-23] MEDS: FUROSEMIDE 20 MG/2 ML VIAL IV SCH ×2 (06:45→16:18)
[2021-07-23 07:24] LABS: Potassium 4.5 mmol/L (3.5-5.1)
[2021-07-23 07:38] LABS: Albumin 3.1 g/dL (3.4-5.0); Bilirubin, Direct 0.2 mg/dL (0-0.2); Bilirubin, Total 0.7 mg/dL (0.2-1.0); Magnesium 2.3 mg/dL (1.6-2.6); Total Protein 6.3 g/dL (6.4-8.2)
[2021-07-23] MEDS: Glucerna Carbsteady SHAKE Vanilla 8oz PO SCH ×3 (08:39→16:18)
[2021-07-23] MEDS: FLUCONAZOLE 200MG/100ML 100 ML IV SCH (08:39)
[2021-07-23] MEDS: FAMOTIDINE 20 MG TAB PO SCH (08:40)
[2021-07-23] MEDS: POTASSIUM CHL 20 Meq TABLET PO SCH (08:40)
[2021-07-23] MEDS: APIXABAN 5 MG TAB PO SCH ×2 (08:40→21:19)
[2021-07-23 09:00] VITALS: BP 110/87
[2021-07-23 13:00] VITALS: BP 102/60
[2021-07-23 17:00] VITALS: BP 120/73
[2021-07-23 22:00] VITALS: BP 97/57
[2021-07-24] MEDS: ALBUTEROL SULF HFA 90MCG INH 200DOSE IN PRN ×2 (00:12→20:31)
[2021-07-24 05:00] VITALS: BP 95/59
[2021-07-24] MEDS: FUROSEMIDE 20 MG/2 ML VIAL IV SCH ×2 (06:00→17:21)
[2021-07-24] MEDS: SALINE 0.65 % NASAL SPRAY 45ML BOTTLE EACHNOSTRI SCH ×4 (06:36→21:33)
[2021-07-24] MEDS: Glucerna Carbsteady SHAKE Vanilla 8oz PO SCH ×3 (08:00→17:22)
[2021-07-24 09:00] VITALS: BP 106/69
[2021-07-24] MEDS: FLUCONAZOLE 200MG/100ML 100 ML IV SCH (09:25)
[2021-07-24] MEDS: APIXABAN 5 MG TAB PO SCH ×2 (09:25→21:26)
[2021-07-24] MEDS: FAMOTIDINE 20 MG TAB PO SCH (09:26)
[2021-07-24] MEDS: POTASSIUM CHL 20 Meq TABLET PO SCH (09:26)
[2021-07-24] MEDS: BUDESONIDE (INHALATION) 180 MCG IH IN SCH ×2 (10:00→19:32)
[2021-07-24] MEDS: MORPHINE SULFATE INJECTION 2 MG/ML SYRG IV PRN (12:46)
[2021-07-24 13:00] VITALS: BP 111/66
[2021-07-24 22:00] VITALS: BP 107/65
[2021-07-25 05:00] VITALS: BP 102/79
[2021-07-25] MEDS: SALINE 0.65 % NASAL SPRAY 45ML BOTTLE EACHNOSTRI SCH ×4 (05:41→21:19)
[2021-07-25] MEDS: FUROSEMIDE 20 MG/2 ML VIAL IV SCH (05:49)
[2021-07-25 07:57] LABS: Basophils # (auto) 0 10 ^3/uL (0-0.2); Basophils % (auto) 0.6 % (0.0-2.0); Eosinophils # (auto) 0.4 10 ^3/uL (0-0.8); Eosinophils % (auto) 5.7 % (0.0-7.0); Hematocrit 38.1 % (41.0-53.0); Hemoglobin 13.1 g/dL (13.5-17.5); Lymphocytes % (auto) 26.1 % (10.0-50.0); Mean Corpuscular Hemoglobin 32.5 pg (28.0-32.0); Mean Corpuscular Hgb Conc. 34.4 g/dL (32.0-36.0); Mean Corpuscular Volume 94.6 fL (80.0-100.0); Monocytes # (auto) 0.5 10 ^3/uL (0-1.3); Monocytes % (auto) 6.4 % (0.0-12.0); Neutrophils # (auto) 4.7 10 ^3/uL (1.6-8.6); Neutrophils % (auto) 61.2 % (37.0-80.0); Red Blood Cells 4.02 10^6/uL (4.5-5.90); White Blood Cell 7.7 10^3/uL (4.4-10.8)
[2021-07-25 07:59] LABS: BUN/Creatinine Ratio 23.8; Calcium 9.1 mg/dL (8.5-10.1); Potassium 4.1 mmol/L (3.5-5.1)
[2021-07-25 09:00] VITALS: BP 117/78
[2021-07-25] MEDS: ALBUTEROL SULF HFA 90MCG INH 200DOSE IN PRN ×2 (09:30→22:33)
[2021-07-25] MEDS: BUDESONIDE (INHALATION) 180 MCG IH IN SCH ×2 (09:30→22:00)
[2021-07-25] MEDS: APIXABAN 5 MG TAB PO SCH ×2 (09:56→21:20)
[2021-07-25] MEDS: FLUCONAZOLE 200MG/100ML 100 ML IV SCH (09:56)
[2021-07-25] MEDS: Glucerna Carbsteady SHAKE Vanilla 8oz PO SCH ×3 (09:56→18:14)
[2021-07-25] MEDS: POTASSIUM CHL 20 Meq TABLET PO SCH (09:57)
[2021-07-25] MEDS: FAMOTIDINE 20 MG TAB PO SCH (09:57)
[2021-07-25 13:00] VITALS: BP 111/80
[2021-07-25 17:00] VITALS: BP 134/69
[2021-07-25 21:24] VITALS: BP 104/68
[2021-07-26] MEDS: LORazepam 2MG/ML-1ML VIAL IV PRN (01:45)
[2021-07-26 05:00] VITALS: BP 98/63
[2021-07-26] MEDS: SALINE 0.65 % NASAL SPRAY 45ML BOTTLE EACHNOSTRI SCH ×4 (05:35→21:31)
[2021-07-26] MEDS: FUROSEMIDE 20 MG/2 ML VIAL IV SCH (06:09)
[2021-07-26] MEDS: Glucerna Carbsteady SHAKE Vanilla 8oz PO SCH ×3 (08:52→18:45)
[2021-07-26 09:00] VITALS: BP 108/69
[2021-07-26] MEDS: FAMOTIDINE 20 MG TAB PO SCH (10:31)
[2021-07-26] MEDS: APIXABAN 5 MG TAB PO SCH ×2 (10:31→21:31)
[2021-07-26] MEDS: FLUCONAZOLE 100 MG TAB PO SCH (10:31)
[2021-07-26] MEDS: POTASSIUM CHL 20 Meq TABLET PO SCH (10:31)
[2021-07-26 13:00] VITALS: BP 113/63
[2021-07-26] MEDS: BUDESONIDE (INHALATION) 180 MCG IH IN SCH ×2 (15:00→22:44)
[2021-07-26 16:46] VITALS: BP 109/70
[2021-07-26 22:00] VITALS: BP 107/60
[2021-07-26] MEDS: ALBUTEROL SULF HFA 90MCG INH 200DOSE IN PRN (23:28)
[2021-07-27 05:00] VITALS: BP 107/71
[2021-07-27] MEDS: SALINE 0.65 % NASAL SPRAY 45ML BOTTLE EACHNOSTRI SCH ×4 (05:05→21:00)
[2021-07-27] MEDS: FUROSEMIDE 20 MG/2 ML VIAL IV SCH (06:20)
[2021-07-27 06:25] LABS: Basophils # (auto) 0 10 ^3/uL (0-0.2); Basophils % (auto) 0.6 % (0.0-2.0); Eosinophils # (auto) 0.6 10 ^3/uL (0-0.8); Eosinophils % (auto) 7.9 % (0.0-7.0); Hematocrit 37.2 % (41.0-53.0); Hemoglobin 12.8 g/dL (13.5-17.5); Lymphocytes # (auto) 1.9 10 ^3/uL (0.4-5.4); Mean Corpuscular Hemoglobin 32.2 pg (28.0-32.0); Mean Corpuscular Hgb Conc. 34.3 g/dL (32.0-36.0); Mean Corpuscular Volume 94.1 fL (80.0-100.0); Monocytes # (auto) 0.5 10 ^3/uL (0-1.3); Monocytes % (auto) 7.2 % (0.0-12.0); Neutrophils # (auto) 4.5 10 ^3/uL (1.6-8.6); Neutrophils % (auto) 59.3 % (37.0-80.0); Nucleated Red Blood Cells % 0.1 %; Red Blood Cells 3.96 10^6/uL (4.5-5.90); White Blood Cell 7.6 10^3/uL (4.4-10.8)
[2021-07-27 06:36] LABS: Calcium 8.9 mg/dL (8.5-10.1); Potassium 4.4 mmol/L (3.5-5.1)
[2021-07-27 06:38] LABS: BUN/Creatinine Ratio 15.4
[2021-07-27 08:00] VITALS: BP 107/71
[2021-07-27 09:00] VITALS: BP 114/78
[2021-07-27] MEDS: APIXABAN 5 MG TAB PO SCH ×2 (09:17→21:01)
[2021-07-27] MEDS: FLUCONAZOLE 100 MG TAB PO SCH (09:17)
[2021-07-27] MEDS: FAMOTIDINE 20 MG TAB PO SCH (09:18)
[2021-07-27] MEDS: POTASSIUM CHL 20 Meq TABLET PO SCH (09:18)
[2021-07-27] MEDS: Glucerna Carbsteady SHAKE Vanilla 8oz PO SCH ×3 (09:21→18:14)
[2021-07-27] MEDS: MORPHINE SULFATE INJECTION 2 MG/ML SYRG IV PRN (10:44)
[2021-07-27] MEDS: BUDESONIDE (INHALATION) 180 MCG IH IN SCH ×2 (11:03→18:52)
[2021-07-27] MEDS: ALBUTEROL SULF HFA 90MCG INH 200DOSE IN PRN ×2 (11:04→18:52)
[2021-07-27 13:00] VITALS: BP 100/60
[2021-07-27] MEDS ORDERED: KETOROLAC TROMETH 30 MG/ML 1ML VIAL IV ONE (14:00)
[2021-07-27 16:58] VITALS: BP 100/63
[2021-07-27 22:00] VITALS: BP 103/74
[2021-07-28] VITALS (8 sets, daily range): BP systolic 100–140; BP diastolic 55–81
[2021-07-28] MEDS: ALBUTEROL SULF HFA 90MCG INH 200DOSE IN PRN ×2 (05:55→19:20)
[2021-07-28] MEDS: BUDESONIDE (INHALATION) 180 MCG IH IN SCH ×2 (05:55→19:20)
[2021-07-28] MEDS: SALINE 0.65 % NASAL SPRAY 45ML BOTTLE EACHNOSTRI SCH ×4 (06:42→20:44)
[2021-07-28] MEDS: FUROSEMIDE 20 MG/2 ML VIAL IV SCH (06:42)
[2021-07-28] MEDS: Glucerna Carbsteady SHAKE Vanilla 8oz PO SCH ×3 (11:29→18:21)
[2021-07-28] MEDS: FLUCONAZOLE 100 MG TAB PO SCH (11:29)
[2021-07-28] MEDS: FAMOTIDINE 20 MG TAB PO SCH (11:30)
[2021-07-28] MEDS: POTASSIUM CHL 20 Meq TABLET PO SCH (11:30)
[2021-07-28] MEDS: APIXABAN 5 MG TAB PO SCH ×2 (11:30→20:45)
[2021-07-28] MEDS ORDERED: methylPREDNISolone SOD SUCC 40 MG/ML VL IV ONE (14:15)
[2021-07-28] MEDS ORDERED: PROMETHAZINE W/CODEINE 5 ML ORAL SYRUP PO PRN (16:45)
[2021-07-28] MEDS: MORPHINE SULFATE INJECTION 2 MG/ML SYRG IV PRN (18:48)
[2021-07-28] MEDS: methylPREDNISolone SOD SUCC 40 MG/ML VL IV SCH (20:45)
[2021-07-28 22:49] LABS: INR 1.04 (0.9-1.15); Partial Thromboplastin Time 29.6 sec (23.6-33.0)
[2021-07-29 05:00] VITALS: BP 140/35
[2021-07-29 06:18] LABS: Basophils # (auto) 0 10 ^3/uL (0-0.2); Basophils % (auto) 0.1 % (0.0-2.0); Eosinophils # (auto) 0 10 ^3/uL (0-0.8); Eosinophils % (auto) 0.1 % (0.0-7.0); Hematocrit 38.5 % (41.0-53.0); Hemoglobin 13.3 g/dL (13.5-17.5); Lymphocytes # (auto) 1.2 10 ^3/uL (0.4-5.4); Lymphocytes % (auto) 18.2 % (10.0-50.0); Mean Corpuscular Hemoglobin 32.4 pg (28.0-32.0); Mean Corpuscular Hgb Conc. 34.4 g/dL (32.0-36.0); Mean Corpuscular Volume 94.2 fL (80.0-100.0); Monocytes # (auto) 0.1 10 ^3/uL (0-1.3); Monocytes % (auto) 1.7 % (0.0-12.0); Neutrophils # (auto) 5.3 10 ^3/uL (1.6-8.6); Neutrophils % (auto) 79.9 % (37.0-80.0); Nucleated Red Blood Cells % 0.2 %; Red Blood Cells 4.09 10^6/uL (4.5-5.90); Red Cell Distribution Width 14.2 % (11.8-14.3); White Blood Cell 6.6 10^3/uL (4.4-10.8)
[2021-07-29] MEDS: SALINE 0.65 % NASAL SPRAY 45ML BOTTLE EACHNOSTRI SCH ×4 (06:28→21:46)
[2021-07-29] MEDS: FUROSEMIDE 20 MG/2 ML VIAL IV SCH (06:28)
[2021-07-29 06:40] LABS: Potassium 4.5 mmol/L (3.5-5.1)
[2021-07-29 06:51] LABS: BUN/Creatinine Ratio 30.3; Calcium 9.3 mg/dL (8.5-10.1)
[2021-07-29 08:00] VITALS: BP 121/67
[2021-07-29 08:42] VITALS: BP 121/67
[2021-07-29] MEDS: BUDESONIDE (INHALATION) 180 MCG IH IN SCH ×2 (10:00→19:31)
[2021-07-29] MEDS: methylPREDNISolone SOD SUCC 40 MG/ML VL IV SCH ×2 (10:44→21:47)
[2021-07-29] MEDS: Glucerna Carbsteady SHAKE Vanilla 8oz PO SCH ×3 (10:44→17:38)
[2021-07-29] MEDS: FLUCONAZOLE 100 MG TAB PO SCH (10:45)
[2021-07-29] MEDS: APIXABAN 5 MG TAB PO SCH ×2 (10:45→21:47)
[2021-07-29] MEDS: POTASSIUM CHL 20 Meq TABLET PO SCH (10:46)
[2021-07-29] MEDS: FAMOTIDINE 20 MG TAB PO SCH (10:46)
[2021-07-29] MEDS: ERGOCALCIFEROL 50,000 UNIT(1.25MG) CAP PO SCH (10:46)
[2021-07-29] MEDS: ALBUTEROL SULF HFA 90MCG INH 200DOSE IN PRN ×2 (10:52→19:31)
[2021-07-29 12:48] VITALS: BP 108/64
[2021-07-29 16:45] VITALS: BP 109/57
[2021-07-29 22:00] VITALS: BP 98/51
[2021-07-30 05:00] VITALS: BP 105/70
[2021-07-30] MEDS: FUROSEMIDE 20 MG/2 ML VIAL IV SCH (06:17)
[2021-07-30] MEDS: SALINE 0.65 % NASAL SPRAY 45ML BOTTLE EACHNOSTRI SCH ×4 (06:17→21:16)
[2021-07-30 08:00] VITALS: BP 96/58
[2021-07-30] MEDS: Glucerna Carbsteady SHAKE Vanilla 8oz PO SCH ×3 (08:00→18:11)
[2021-07-30 08:42] VITALS: BP 98/66
[2021-07-30] MEDS: FAMOTIDINE 20 MG TAB PO SCH (08:43)
[2021-07-30] MEDS: APIXABAN 5 MG TAB PO SCH ×2 (08:44→21:16)
[2021-07-30] MEDS: POTASSIUM CHL 20 Meq TABLET PO SCH (08:45)
[2021-07-30] MEDS: methylPREDNISolone SOD SUCC 40 MG/ML VL IV SCH ×2 (08:56→21:16)
[2021-07-30] MEDS: ALBUTEROL SULF HFA 90MCG INH 200DOSE IN PRN ×2 (09:49→19:09)
[2021-07-30] MEDS: BUDESONIDE (INHALATION) 180 MCG IH IN SCH ×2 (09:49→19:09)
[2021-07-30] MEDS: FLUCONAZOLE 100 MG TAB PO SCH (10:15)
[2021-07-30 12:47] VITALS: BP 101/65
[2021-07-30] MEDS: MORPHINE SULFATE INJECTION 2 MG/ML SYRG IV PRN (15:52)
[2021-07-30 17:00] VITALS: BP 107/70
[2021-07-30 22:00] VITALS: BP 127/55
[2021-07-31 05:00] VITALS: BP 96/57
[2021-07-31] MEDS: SALINE 0.65 % NASAL SPRAY 45ML BOTTLE EACHNOSTRI SCH ×4 (06:20→23:15)
[2021-07-31] MEDS: FUROSEMIDE 20 MG/2 ML VIAL IV SCH (06:20)
[2021-07-31] MEDS: BUDESONIDE (INHALATION) 180 MCG IH IN SCH ×2 (07:19→20:30)
[2021-07-31] MEDS: ALBUTEROL SULF HFA 90MCG INH 200DOSE IN PRN ×2 (07:19→20:30)
[2021-07-31] MEDS: FLUCONAZOLE 100 MG TAB PO SCH (08:18)
[2021-07-31] MEDS: methylPREDNISolone SOD SUCC 40 MG/ML VL IV SCH ×2 (08:19→23:15)
[2021-07-31] MEDS: POTASSIUM CHL 20 Meq TABLET PO SCH (08:19)
[2021-07-31] MEDS: APIXABAN 5 MG TAB PO SCH ×2 (08:19→23:15)
[2021-07-31] MEDS: FAMOTIDINE 20 MG TAB PO SCH (08:19)
[2021-07-31] MEDS: Glucerna Carbsteady SHAKE Vanilla 8oz PO SCH ×3 (08:20→18:00)
[2021-07-31 09:00] VITALS: BP 94/53
[2021-07-31 13:00] VITALS: BP 106/70
[2021-07-31 17:00] VITALS: BP 109/73
[2021-07-31 22:00] VITALS: BP 107/66
[2021-08-01 05:00] VITALS: BP 104/67
[2021-08-01] MEDS: FUROSEMIDE 20 MG/2 ML VIAL IV SCH (05:41)
[2021-08-01] MEDS: SALINE 0.65 % NASAL SPRAY 45ML BOTTLE EACHNOSTRI SCH ×4 (05:58→22:00)
[2021-08-01] MEDS: Glucerna Carbsteady SHAKE Vanilla 8oz PO SCH ×3 (08:00→18:17)
[2021-08-01] MEDS: ALBUTEROL SULF HFA 90MCG INH 200DOSE IN PRN ×2 (08:14→17:47)
[2021-08-01] MEDS: BUDESONIDE (INHALATION) 180 MCG IH IN SCH ×2 (08:14→17:47)
[2021-08-01 08:37] VITALS: BP 107/68
[2021-08-01] MEDS: methylPREDNISolone SOD SUCC 40 MG/ML VL IV SCH (10:39)
[2021-08-01] MEDS: FLUCONAZOLE 100 MG TAB PO SCH (10:40)
[2021-08-01] MEDS: APIXABAN 5 MG TAB PO SCH ×2 (10:40→22:33)
[2021-08-01] MEDS: FAMOTIDINE 20 MG TAB PO SCH (10:40)
[2021-08-01] MEDS: POTASSIUM CHL 20 Meq TABLET PO SCH (10:40)
[2021-08-01 13:00] VITALS: BP 117/74
[2021-08-01 16:43] VITALS: BP 105/60
[2021-08-01 22:00] VITALS: BP 105/52
[2021-08-02 05:35] VITALS: BP 96/66
[2021-08-02] MEDS: SALINE 0.65 % NASAL SPRAY 45ML BOTTLE EACHNOSTRI SCH ×4 (06:04→21:52)
[2021-08-02] MEDS: BUDESONIDE (INHALATION) 180 MCG IH IN SCH ×2 (06:08→20:24)
[2021-08-02] MEDS: ALBUTEROL SULF HFA 90MCG INH 200DOSE IN PRN ×2 (06:08→20:24)
[2021-08-02] MEDS: FUROSEMIDE 20 MG/2 ML VIAL IV SCH (06:39)
[2021-08-02 08:00] VITALS: BP 102/71
[2021-08-02 09:00] VITALS: BP 102/71
[2021-08-02] MEDS: predniSONE 20 MG TAB PO SCH (10:32)
[2021-08-02] MEDS: Glucerna Carbsteady SHAKE Vanilla 8oz PO SCH ×3 (10:32→18:31)
[2021-08-02] MEDS: FAMOTIDINE 20 MG TAB PO SCH (10:33)
[2021-08-02] MEDS: FLUCONAZOLE 100 MG TAB PO SCH (10:33)
[2021-08-02] MEDS: APIXABAN 5 MG TAB PO SCH ×2 (10:33→21:52)
[2021-08-02] MEDS: POTASSIUM CHL 20 Meq TABLET PO SCH (10:33)
[2021-08-02 13:00] VITALS: BP 100/62
[2021-08-02 17:00] VITALS: BP 108/73
[2021-08-02 22:00] VITALS: BP 93/59
[2021-08-03 05:00] VITALS: BP 103/67
[2021-08-03] MEDS: SALINE 0.65 % NASAL SPRAY 45ML BOTTLE EACHNOSTRI SCH ×4 (06:26→21:42)
[2021-08-03 06:38] LABS: Hematocrit 41.8 % (41.0-53.0); Hemoglobin 14.2 g/dL (13.5-17.5); Mean Corpuscular Hemoglobin 32.2 pg (28.0-32.0); Mean Corpuscular Hgb Conc. 34.1 g/dL (32.0-36.0); Mean Corpuscular Volume 94.5 fL (80.0-100.0); Red Blood Cells 4.42 10^6/uL (4.5-5.90); Red Cell Distribution Width 14.4 % (11.8-14.3); White Blood Cell 10.4 10^3/uL (4.4-10.8)
[2021-08-03 06:45] LABS: Basophils % (manual) 0 (0.0-2.0); Blast Cells 0; Myelocytes % 0; Promyelocytes % 0; Reactive Lymphocytes 0
[2021-08-03 07:20] LABS: BUN/Creatinine Ratio 27.7; Calcium 8.7 mg/dL (8.5-10.1)
[2021-08-03] MEDS: Glucerna Carbsteady SHAKE Vanilla 8oz PO SCH ×3 (08:00→17:48)
[2021-08-03 09:00] VITALS: BP 102/63
[2021-08-03] MEDS: APIXABAN 5 MG TAB PO SCH (09:41)
[2021-08-03] MEDS: FAMOTIDINE 20 MG TAB PO SCH (09:41)
[2021-08-03] MEDS: predniSONE 20 MG TAB PO SCH (09:41)
[2021-08-03] MEDS: ALBUTEROL SULF HFA 90MCG INH 200DOSE IN PRN (10:24)
[2021-08-03] MEDS: BUDESONIDE (INHALATION) 180 MCG IH IN SCH ×2 (10:24→20:42)
[2021-08-03 11:52] LABS: Band Neutrophils % (manual) 1; Eosinophils % (manual) 1 (0-7); Lymphocytes % (manual) 30 (10.0-50.0); Metamyelocytes % 2; Monocytes % (manual) 10 (0-12)
[2021-08-03 13:00] VITALS: BP 105/67
[2021-08-03 17:00] VITALS: BP 113/62
[2021-08-03 21:30] VITALS: BP 107/64
[2021-08-04 05:00] VITALS: BP 115/67
[2021-08-04] MEDS: SALINE 0.65 % NASAL SPRAY 45ML BOTTLE EACHNOSTRI SCH ×4 (06:29→21:54)
[2021-08-04 08:27] VITALS: BP 106/71
[2021-08-04] MEDS: Glucerna Carbsteady SHAKE Vanilla 8oz PO SCH ×3 (10:00→18:00)
[2021-08-04] MEDS: BUDESONIDE (INHALATION) 180 MCG IH IN SCH ×2 (10:00→22:00)
[2021-08-04] MEDS: FAMOTIDINE 20 MG TAB PO SCH (10:01)
[2021-08-04] MEDS: ASPirin 81 mg TAB PO SCH (10:01)
[2021-08-04] MEDS: predniSONE 20 MG TAB PO SCH (10:01)
[2021-08-04 12:44] VITALS: BP 105/66
[2021-08-04] MEDS: ALBUTEROL SULF HFA 90MCG INH 200DOSE IN PRN (14:16)
[2021-08-04 17:00] VITALS: BP 114/85
[2021-08-04 21:25] VITALS: BP 95/64
[2021-08-05] MEDS: SALINE 0.65 % NASAL SPRAY 45ML BOTTLE EACHNOSTRI SCH ×3 (05:11→18:00)
[2021-08-05] MEDS: Glucerna Carbsteady SHAKE Vanilla 8oz PO SCH ×3 (07:47→18:00)
[2021-08-05] MEDS: BUDESONIDE (INHALATION) 180 MCG IH IN SCH (08:36)
[2021-08-05] MEDS: ALBUTEROL SULF HFA 90MCG INH 200DOSE IN PRN (08:36)
[2021-08-05 09:00] VITALS: BP 106/67
[2021-08-05] MEDS: ASPirin 81 mg TAB PO SCH (09:25)
[2021-08-05] MEDS: predniSONE 20 MG TAB PO SCH (09:25)
[2021-08-05] MEDS: FAMOTIDINE 20 MG TAB PO SCH (09:25)
[2021-08-05] MEDS: ERGOCALCIFEROL 50,000 UNIT(1.25MG) CAP PO SCH (10:53)
[2021-08-05 13:00] VITALS: BP 101/69
[2021-08-05 16:10] VITALS: BP 96/66
[2021-08-05 17:00] VITALS: BP 98/56
== END 2021-08-05 19:50 | disposition home or self-care (01) | DRG 720 ==
LOC: ER 11:20 → TELE 18:11 → TELE-EAST 22:47 → TELE-E-ADS 06-12 14:20 → TELE-EAST 07-14 14:05
PROVIDERS: ADMIT Family Medicine; ATTEND Internal Medicine
PROC: XW033E5 Introduction of Remdesivir Anti-infective into Peripheral Vein, Percutaneous Approach, New Technology Group 5 (ICD-10-PCS; 2021-06-09)
PROC: 5A0955A Assistance with Respiratory Ventilation, Greater than 96 Consecutive Hours, High Flow/Velocity Cannula (ICD-10-PCS; 2021-06-12)
PROC: XW033H5 Introduction of Tocilizumab into Peripheral Vein, Percutaneous Approach, New Technology Group 5 (ICD-10-PCS; 2021-06-15)
PROC: 0W9930Z Drainage of Right Pleural Cavity with Drainage Device, Percutaneous Approach (ICD-10-PCS; principal; 2021-07-28)
DX: A41.89 Other specified sepsis (principal); J96.01 Acute respiratory failure with hypoxia; J12.82 Pneumonia due to coronavirus disease 2019; U07.1 COVID-19; D68.59 Other primary thrombophilia; D89.839 Cytokine release syndrome, grade unspecified; E87.1 Hypo-osmolality and hyponatremia; E86.0 Dehydration; R73.9 Hyperglycemia, unspecified; E66.9 Obesity, unspecified; R65.20 Severe sepsis without septic shock; Z68.30 Body mass index [BMI] 30.0-30.9, adult; R73.03 Prediabetes; J93.9 Pneumothorax, unspecified; Z79.82 Long term (current) use of aspirin; Z23 Encounter for immunization
CPT/HCPCS: 36415; 36600; 71045; 76942; 80048; 80053; 80076; 81001; 82306; 82728; 82805; 83036; 83605; 83615; 83735; 84132; 84443; 84484; 85007; 85025; 85027; 85379; 85610; 85730; 86141; 87040; 87070; 87081; 87205; 87426; 87804; 93005; 94640; 96365; 96375; 97110; 97116; 97163; 97530; 99291; A4223; C1724; C1729; G0378; J0696; J1100; J1450; J1885; J1956; J2001; J2405; J2543; J3490